=== PATIENT | female | born 1935 | race Two or more races ===

== ENCOUNTER 2019-12-29 14:47 | Inpatient (IN) | payer MEDICARE ==
[~2019-12-29] VITALS: Ht 154.9 cm; Wt 80.7 kg
[2019-12-29 14:50] VITALS: BP 108/69
--- NOTE | 2019-12-29 14:50 | NUR ---
ED Nurse Note: Patient brought in from [facility] d/t shortness of breath x 2 days. Patient is currently on 3 L NC, O2 sat 98 %, no s/s of acute distress. Patient AxO x 4, on the rn cardiac rehab, blood sent to lab. 22 g IV started in right hand.
--- NOTE | 2019-12-29 14:59 | Emergency Room Report ---
History of Present Illness General Chief Complaint: Upper Respiratory Illness Source: Patient, EMS Present Illness HPI Disclaimer: Please note that this report is being documented using DRAGON technology. This can lead to erroneous entry secondary to incorrect interpretation by the dictating instrument. HPI: 84-year-old primarily Cape Verdean speaking female presents from a nursing facility for evaluation of cough and shortness of breath. History of dementia and atrial fibrillation on Eliquis. Per EMS symptoms have been ongoing for 2 days. Saturating 92% on room air improving with oxygen. She does not normally wear oxygen has no known diagnosis of CHF, COPD. No fevers reported. 5 tachypneic and wheezing. PMH: Dementia, atrial fibrillation PSH: Left knee repair Allergies: None reported Social Hx: Unknown Allergies: Coded Allergies: No Known Allergies (Unverified , 12/29/19) Nursing Documentation-PMH Hx Cardiac Problems: Yes - afib Hx Diabetes: Yes Review of Systems All Other Systems: negative except mentioned in HPI Physical Exam Vital Signs Date Time Temp Pulse Resp B/P (MAP) Pulse Ox O2 Delivery O2 Flow Rate FiO2 12/29/19 14:41 97.5 62 16 108/69 (82) 92 Nasal Cannula 4.0 General: Awake and alert, no acute distress HEENT: NC/AT. EOMI. Cardiovascular: RRR. S1 and S2 normal. No murmur appreciated Resp: Normal work of breathing. No wheezing appreciated but there are coarse crackles at the right lung base. Patient is somewhat uncomfortable saturating 92% on RA but 100 on RA Abdomen: Abdomen is soft, nondistended. Nontender Skin: Intact. No abrasions, laceration or rash over the exposed skin MSK: Normal tone and bulk. Moving all extremities. No obvious deformity. Neuro: Awake and alert. Mentating appropriately. Medical Decision Making Diagnostic Impression: Primary Impression: Upper respiratory infection ER Course This an 84-year-old female presenting for evaluation of 2 days URI symptoms and worsening respiratory status at her nursing facility today. Saturating 94% on RA with crackles at the right lung base concerning for pneumonia or upper respiratory infection. She is DNR/DNI. Along with selective care including antibiotics. We will start a broad metabolic infectious work-up including chest x-ray but I suspect the patient will require admission. Laboratory Tests Test 12/29/19 15:20 12/29/19 15:59 White Blood Count 4.5 K/UL (4.8-10.8) L Red Blood Count 3.81 M/UL (4.20-5.40) L Hemoglobin 10.2 G/DL (12.0-16.0) L Hematocrit 31.7 % (37.0-47.0) L Mean Corpuscular Volume 83 FL (80-99) Mean Corpuscular Hemoglobin 26.8 PG (27.0-31.0) L Mean Corpuscular Hemoglobin Concent 32.2 G/DL (32.0-36.0) Red Cell Distribution Width 14.6 % (11.6-14.8) Platelet Count 250 K/UL (150-450) Mean Platelet Volume 5.9 FL (6.5-10.1) L Neutrophils (%) (Auto) 69.4 % (45.0-75.0) Lymphocytes (%) (Auto) 17.6 % (20.0-45.0) L Monocytes (%) (Auto) 9.2 % (1.0-10.0) Eosinophils (%) (Auto) 2.3 % (0.0-3.0) Basophils (%) (Auto) 1.5 % (0.0-2.0) Sodium Level 128 MMOL/L (136-145) L Potassium Level 5.5 MMOL/L (3.5-5.1) H Chloride Level 93 MMOL/L (98-107) L Carbon Dioxide Level 27 MMOL/L (21-32) Anion Gap 8 mmol/L (5-15) Blood Urea Nitrogen 27 mg/dL (7-18) H Creatinine 1.3 MG/DL (0.55-1.30) Estimate Glomerular Filtration Rate 39.0 mL/min (>60) Glucose Level 83 MG/DL (74-106) Lactic Acid Level 1.60 mmol/L (0.4-2.0) Calcium Level 9.0 MG/DL (8.5-10.1) Total Bilirubin 0.2 MG/DL (0.2-1.0) Aspartate Amino Transferase (AST) 24 U/L (15-37) Alanine Aminotransferase (ALT) 14 U/L (12-78) Alkaline Phosphatase 96 U/L (46-116) Troponin I 0.008 ng/mL (0.000-0.056) Pro-B-Type Natriuretic Peptide 1341 pg/mL (0-125) H Total Protein 6.2 G/DL (6.4-8.2) L Albumin 3.1 G/DL (3.4-5.0) L Globulin 3.1 g/dL Albumin/Globulin Ratio 1.0 (1.0-2.7) Arterial Blood pH 7.412 (7.350-7.450) Arterial Blood Partial Pressure CO2 39.6 mmHg (35.0-45.0) Arterial Blood Partial Pressure O2 121.1 mmHg (75.0-100.0) H Arterial Blood HCO3 24.7 mmol/L (22.0-26.0) Arterial Blood Oxygen Saturation 98.1 % (95-100) Arterial Blood Base Excess 0.1 (-2-2) Kris Test Positive Microbiology Date/Time Source Procedure Growth Status 12/29/19 15:20 Nasal Nares - Final Complete 12/29/19 15:20 Nasal Nares - Final Complete EKG Diagnostic Results EKG Time: 15:02 Rate: normal Other Impression Atrial fibrillation with an left axis deviation and normal ventricular rates. Rhythm Strip Diag. Results Rhythm Strip Time: 15:02 EP Interpretation: yes Rate: 70s Rhythm: other - Irregularly irregular rhythm Chest X-Ray Diagnostic Results Chest X-Ray Diagnostic Results : Chest X-Ray Ordered: Yes # of Views/Limited/Complete: 1 View Indication: Shortness of Breath Interpretation: no effusion, no pneumothorax, other - Streaky atelectasis of the bottom right and may be early pneumonia Impression: No acute disease Electronically Signed by: Electronically signed by Dr. Alexander Langley Reevaluation Time: 17:00 Last Vital Signs Date Time Temp Pulse Resp B/P (MAP) Pulse Ox O2 Delivery O2 Flow Rate FiO2 12/29/19 14:41 97.5 62 16 108/69 (82) 92 Nasal Cannula 4.0 Reevaluation Impression Blood gas and CBC show no significant white count and mild anemia. Blood gas within normal limits. Chemistry shows elevated potassium 5.5 without EKG changes and slightly low sodium at 128. Creatinine within normal limits. Lactate within normal limits and troponin negative. BN peptide elevated. Patient was given Lasix and antibiotics. Will be admitted for further management. Disposition: ADMITTED INPATIENT Condition: Serious Alexander Langley MD Dec 29, 2019 14:59
[2019-12-29] MEDS ORDERED: Albuterol/Ipratropium 3ml neb HHN SCH (15:00)
[2019-12-29] MEDS ORDERED: POLYETHYLENE GL17 GM ORAL (15:01)
[2019-12-29] MEDS ORDERED: TUMS X-STR300 MG PO (15:01)
[2019-12-29] MEDS ORDERED: TEMAZEPAM15 MG ORAL (15:01)
[2019-12-29] MEDS ORDERED: VITAMIN D34000 UNIT PO (15:01)
[2019-12-29] MEDS ORDERED: ACETAMINOPHEN325 M1 ORAL (15:01)
[2019-12-29] MEDS ORDERED: ELIQUIS2.5 MG PO (15:01)
[2019-12-29] MEDS ORDERED: PROAIR HFA8.5 GM INH (15:01)
[2019-12-29] MEDS ORDERED: BENZONATATE200 MG ORAL (15:01)
[2019-12-29] MEDS ORDERED: ASPIR 8181 MG ORAL (15:01)
[2019-12-29] MEDS ORDERED: BUSPIRONE HCL15 MG ORAL (15:01)
[2019-12-29] MEDS ORDERED: CULTURELLE PO (15:01)
[2019-12-29] MEDS ORDERED: ALDACTONE25 MG ORAL (15:01)
[2019-12-29] MEDS ORDERED: CALCIUM + D SO1 EACH PO (15:01)
[2019-12-29] MEDS ORDERED: Azithromycin 500 MG in NS 275 ML IV ONE (15:45)
[2019-12-29] MEDS ORDERED: cefTRIAXone 1 GM in NS 55 ML IVPB ONE (15:45)
--- NOTE | 2019-12-29 15:51 | Diagnostic Imaging Report ---
Indication: Shortness of breath Technique: One view of the chest Comparison: none Findings: Heart is enlarged. There is mild interstitial prominence. A calcified granuloma is seen in the left midlung. No definite focal airspace consolidation. No definite effusions Impression: Cardiomegaly Mild interstitial prominence. This may reflect mild interstitial congestion or may be on the basis of senescent change
[2019-12-29 16:54] LABS: BASOPHILS % (AUTO) 1.5 % (0.0-2.0); EOSINOPHILS % (AUTO) 2.3 % (0.0-3.0); HEMATOCRIT 31.7 % (37.0-47.0); HEMOGLOBIN 10.2 G/DL (12.0-16.0); LYMPHOCYTES % (AUTO) 17.6 % (20.0-45.0); MEAN CORPUSCULAR VOLUME 83 FL (80-99); MONOCYTES % (AUTO) 9.2 % (1.0-10.0); NEUTROPHILS % (AUTO) 69.4 % (45.0-75.0); PLATELET COUNT 250 K/UL (150-450); RED BLOOD COUNT 3.81 M/UL (4.20-5.40); RED CELL DISTRIBUTION WIDTH 14.6 % (11.6-14.8); WHITE BLOOD COUNT 4.5 K/UL (4.8-10.8)
[2019-12-29 17:02] LABS: ANION GAP 8 mmol/L (5-15); BLOOD UREA NITROGEN 27 mg/dL (7-18); CARBON DIOXIDE 27 MMOL/L (21-32); CHLORIDE 93 MMOL/L (98-107); CREATININE 1.3 MG/DL (0.55-1.30); POTASSIUM 5.5 MMOL/L (3.5-5.1); SODIUM 128 MMOL/L (136-145)
[2019-12-29 17:03] VITALS: BP 106/67
[2019-12-29 17:16] LABS: ALANINE AMINOTRANSFERASE 14 U/L (12-78); ALBUMIN 3.1 G/DL (3.4-5.0); ALKALINE PHOSPHATASE 96 U/L (46-116); ASPARTATE AMINO TRANSFERASE 24 U/L (15-37); BILIRUBIN,TOTAL 0.2 MG/DL (0.2-1.0)
--- NOTE | 2019-12-29 19:10 | NUR ---
HAND-OFF: Report given to Melody CASTAÑEDA.
[2019-12-29 20:00] VITALS: BP 108/75
--- NOTE | 2019-12-29 20:00 | NUR ---
TRANSFER TO FLOOR: Patient transferred to as ordered, per Dr Hampton. Report given to GARRY Alberto . Belongings and medications given to . Family and or S/O informed of transfer.
--- NOTE | 2019-12-29 20:03 | NUR ---
ED Nurse Note: Pt palced on bed santamaria x3, clear pale yellow urine. Pt is increasingly restless.
[2019-12-29 20:15] VITALS: BP 101/66
--- NOTE | 2019-12-29 20:15 | NUR ---
NURSE NOTES: Received report from GARRY Oliver. Patient was transferred from ED to Telemetry via gurney accompanied by 2 staff members, without any incident. Patient was transferred to hospital bed via draw sheet method. A/Ox4. Primarily Taiwanese speaking. Placed on tele box, Afib on the monitor, 112 bpm. Vital signs taken T=97.3, HR=91, RR=18, YN=248/66, O2 sat =100%. Checked IV site and flushed. No erythema, bleeding or infiltration noted. Belongings list checked with transferring RN. Body assessment done without any skin issues. Bed at lowest position, brakes on, siderailsx3. Call light within reach. Will continue to monitor.
--- NOTE | 2019-12-29 21:30 | NUR ---
NURSE NOTES: Paged Dr. Neal for admitting orders. Awaiting for callback.
[2019-12-29] MEDS ORDERED: Milk of Magnesia 30ml Ud ORAL PRN (22:15)
[2019-12-29] MEDS ORDERED: Guaifenesin/DM 10ml syrup ORAL PRN (22:15)
[2019-12-29] MEDS ORDERED: Miralax 17gm pkt ORAL PRN (22:15)
[2019-12-29] MEDS: Eliquis 2.5mg tablet ORAL SCH ×2 (22:50→22:55)
--- NOTE | 2019-12-29 23:00 | NUR ---
NURSE NOTES: Patient refused IV fluids and medication. Explained risk and benefit x3. Still patient refused to received IV fluid and medication. Charge nurse made aware.
--- NOTE | 2019-12-29 23:15 | History and Physical Report ---
DATE OF ADMISSION: 12/29/2019 REASON FOR ADMISSION: Shortness of breath, hypoxia, and abnormal electrolytes. HISTORY OF PRESENT ILLNESS: This is an 84-year-old female. She resides in an assisted living facility. She has advance directives for DNR/DNI. She has had several days of increasing cough, congestion, and shortness of breath. She was noted to be slightly hypoxic on presentation in the emergency room and was also tachypneic and with episode of hypotension reported. She was given fluids followed by diuretic for an abnormal potassium level and then started on IV antimicrobials. I have been asked to admit her to the hospital for further care. PAST MEDICAL HISTORY: Cerebrovascular disease, dementia, paroxysmal atrial fibrillation, hypertension, osteoarthritis, status post left knee surgery, type 2 diabetes mellitus, vitamin D deficiency. ALLERGIES: NONE. MEDICATIONS: Prior to admission, reviewed and reconciled. FAMILY HISTORY: Noncontributory. SOCIAL HISTORY: Negative for smoking, alcohol, or substance abuse. She is Upper Sorbian speaking. REVIEW OF SYSTEMS: A 10-point review of systems could not be performed due to the patient's underlying dementia and language barrier. However, review of records is performed with x20 minutes and pertinent data outlined above. PHYSICAL EXAMINATION: VITAL SIGNS: Afebrile, blood pressure 108/69, pulse 62, respirations 16. HEENT: Normocephalic, atraumatic. Conjunctivae pink. Sclerae are anicteric. Oropharynx clear. Mucous membranes moist. NECK: Supple. Jugular venous pressure grossly normal. No accessory muscle use. LUNGS: Coarse breath sounds. Rhonchi and rales at the right base predominantly. CARDIAC: Regular rhythm and rate. Normal S1, S2 with a fourth heart sound. ABDOMEN: Soft, nontender. EXTREMITIES: No clubbing, cyanosis. No edema. NEUROLOGIC: Grossly nonfocal. Moderate cognitive impairment. SKIN: Intact. LABORATORY AND DIAGNOSTIC DATA: White count 4.5, hemoglobin 10.2. BUN 27, creatinine 1.3, bicarb 27. Sodium 128, potassium 5.5, chloride 93, troponin 0.008, pro-natriuretic peptide 1341. ABG 7.4, 40, and 120. Influenza swab was negative. EKG, atrial fibrillation, nonspecific ST changes with ventricular rate 70. Chest x-ray, no acute process other than right basilar atelectasis. IMPRESSION: 1. Acute respiratory insufficiency with hypoxia. 2. Community-acquired bronchopneumonia. 3. Hyponatremia and hyperkalemia, likely due to Aldactone use. 4. Mild hypovolemia and dehydration. 5. Acute on chronic diastolic congestive heart failure. 6. Atrial fibrillation, rate controlled. 7. Coagulopathy due to chronic therapy with apixaban. 8. Cerebrovascular disease with dementia. PLAN: 1. Panculture. 2. Inhaled bronchodilators. 3. Nasal oxygen. 4. Empiric antimicrobials, antitussives, antipyretics as needed. 5. Hold Aldactone. 6. Saline hydration. 7. Monitor volume status and cardiorenal parameters. 8. Trend natriuretic peptide assay. 9. Check thyroid panel. 10. DNR/DNI based on advance directives and . 11. Cardiac monitoring. Jarrett Neal M.D. DR: LOU JOB#: [id number] CC:
[2019-12-29] MEDS: Albuterol/Ipratropium 3ml neb HHN SCH (23:41)
--- NOTE | 2019-12-29 23:52 | NUR ---
HAND-OFF: Report given to GARRY Heller. Plan of care endorsed.
[2019-12-30] VITALS: BP 99/50
--- NOTE | 2019-12-30 | NUR ---
NURSE NOTES: Report received from GARRY Alberto. Observed pt lying in the bed, awake, denies any pain at this time. A fib with HR of 100 noted. On 3L NC, with no sob noted. IV on R H 22G, SL, asymptomatic. No distress noted at this time. Bed in the lowest position. Call light within reach. Will continue to monitor.
[2019-12-30] MEDS: Albuterol/Ipratropium 3ml neb HHN SCH ×6 (03:41→23:00)
[2019-12-30 04:00] VITALS: BP 108/52
--- NOTE | 2019-12-30 07:26 | NUR ---
NURSE NOTES: Received report from GARRY Heller. Pt in bed, awake, talkative, Vietnamese and Kosovan speaking, very heavy accents, pt shouting that she wants to go home today "Nothing is wrong with me, I want to go home, here I don't eat, I don't drink, I will call my son to pick me up." Explained to the pt that she was recently admitted and Dr. Neal will see her and order a DC. Pt is in no respiratory distress, no c/o of pain, bed in lowest position and locked, call light within reach.
--- NOTE | 2019-12-30 07:29 | NUR ---
HAND-OFF: Report given to GARRY Paez.
[2019-12-30 08:00] VITALS: BP 115/67
--- NOTE | 2019-12-30 08:25 | NUR ---
NURSE NOTES: Pt refused vital signs, RN explained to pt need for vitals, pt agreed
--- NOTE | 2019-12-30 08:45 | NUR ---
NURSE NOTES: Pt refused her lab draw, RN spoke with pt, but pt stated "no needles, I don't need anything, I go home."
[2019-12-30] MEDS: Docusate 100mg cap ORAL SCH ×2 (09:00→17:51)
[2019-12-30] MEDS: Aspirin Baby 81mg ORAL SCH (09:00)
--- NOTE | 2019-12-30 09:30 | NUR ---
NURSE NOTES: Assisted pt to bathroom with a front we Addendum: 12/30/19 at 1024 by SHAAN DELUNA RN NURSE NOTES: Assisted pt to bathroom with a front wheel walker, pt is very anxious, upset and cry because she needed Addendum: 12/30/19 at 1029 by SHAAN DELUNA RN NURSE NOTES: Assisted pt to the bathroom with a front wheel walker, pt is upset, anxious, crying because she need assistance with cleaning herself. Assisted pt back to bed safely. Discussed with pt that her HR is 140-150's and she needs to take her medications. Pt agreed to take Buspirone 15mg PO to help reduce anxiety. RN also discussed the importance of pt having her IVF NS infusion. Pt agreed. RN connected IVF. Dr. Neal at bedside discussed plan of care with pt and importance of having lab draws, taking medications, and complying with care, pt agreed and agreed to eat lunch as she refused to eat breakfast. RN notified Dr. Neal in person that pt's HR has been 140-150's and she had been refusing treatments
[2019-12-30] MEDS: BusPIRone 5mg Tab ORAL SCH ×2 (09:50→18:00)
[2019-12-30] MEDS: Eliquis 2.5mg tablet ORAL SCH ×3 (11:39→22:20)
[2019-12-30 12:00] VITALS: BP 113/72
[2019-12-30 13:47] LABS: BASOPHILS % (AUTO) 0.6 % (0.0-2.0); EOSINOPHILS % (AUTO) 0.2 % (0.0-3.0); HEMATOCRIT 33.5 % (37.0-47.0); HEMOGLOBIN 11.1 G/DL (12.0-16.0); MEAN CORPUSCULAR VOLUME 83 FL (80-99); MONOCYTES % (AUTO) 12.3 % (1.0-10.0); NEUTROPHILS % (AUTO) 69.8 % (45.0-75.0); PLATELET COUNT 251 K/UL (150-450); RED BLOOD COUNT 4.04 M/UL (4.20-5.40); RED CELL DISTRIBUTION WIDTH 13.4 % (11.6-14.8)
--- NOTE | 2019-12-30 14:10 | NUR ---
NURSE NOTES: Called pt's son, Roger to discuss pt's anxiety, refusing to eat, a overall refusal of care. Received a call from son, Anibal, provided update on pt's status and Anibal spoke with his mother
[2019-12-30 14:25] LABS: ALANINE AMINOTRANSFERASE 12 U/L (12-78); ALBUMIN 3.2 G/DL (3.4-5.0); ALBUMIN/GLOBULIN RATIO 0.9 (1.0-2.7); ALKALINE PHOSPHATASE 97 U/L (46-116); ANION GAP 10 mmol/L (5-15); ASPARTATE AMINO TRANSFERASE 18 U/L (15-37); BILIRUBIN,TOTAL 0.3 MG/DL (0.2-1.0); BLOOD UREA NITROGEN 22 mg/dL (7-18); CALCIUM 9.3 MG/DL (8.5-10.1); CARBON DIOXIDE 26 MMOL/L (21-32); CHLORIDE 96 MMOL/L (98-107); CREATININE 1.3 MG/DL (0.55-1.30); POTASSIUM 4.2 MMOL/L (3.5-5.1); SODIUM 132 MMOL/L (136-145)
[2019-12-30 14:29] LABS: FERRITIN 44 NG/ML (8-388)
[2019-12-30 14:40] LABS: % IRON SATURATION 14 % (15-50); IRON 50 ug/dL (50-175); TOTAL IRON BINDING CAPACITY 353 ug/dL (250-450)
[2019-12-30 14:55] LABS: CHOLESTEROL 151 MG/DL (< 200); HDL CHOLESTEROL 49 MG/DL (40-60); TRIGLYCERIDES 91 MG/DL (30-150)
--- NOTE | 2019-12-30 14:59 | Consultation ---
Consult Note Consult Note asked to eval for huigh K and low Na Bruneian speaking female ER: 84-year-old primarily Bruneian speaking female presents from a nursing facility for evaluation of cough and shortness of breath. History of dementia and atrial fibrillation on Eliquis. Per EMS symptoms have been ongoing for 2 days. Saturating 92% on room air improving with oxygen. She does not normally wear oxygen has no known diagnosis of CHF, COPD. No fevers reported. 5 tachypneic and wheezing. PMH: Dementia, atrial fibrillation PSH: Left knee repair Allergies: None Hx Cardiac Problems: Yes - afib Hx Diabetes: Yes examined- uncoaporative data reviewed . Assessment/Plan Admitted with respiratory failure and Hypoxia Pneumonia Low Na and High K ? due to aldactone Azotemia / Dehydration CHF , acute on chronic Anemia- Low Irron Obesity Dementia DM Plan: UA Mag supplement IV Iron Aim to correct lytes monitor renal parameters keep BP and BS and HR in check Pulm and cardiac tune up Nakul Matta MD Dec 30, 2019 14:59
--- NOTE | 2019-12-30 15:15 | Consultation ---
DATE OF CONSULTATION: 12/30/2019 INFECTIOUS DISEASES CONSULTATION CONSULTING PHYSICIAN: Nieves Burgess M.D. REFERRING PHYSICIAN: Jarrett Neal M.D. REASON FOR CONSULTATION: Pneumonia. HISTORY OF PRESENTING ILLNESS: This is an 84-year-old lady with history of dementia, CVA, atrial fibrillation, hypertension, diabetes who comes in with increasing cough, congestion, and shortness of breath. She was found to be tachypneic and found to have pneumonia and Infectious Diseases consultation has been obtained for antibiotics. PAST MEDICAL HISTORY: 1. History of CVA. 2. Dementia. 3. Atrial fibrillation. 4. Hypertension. 5. Osteoarthritis. 6. Status post left knee surgery. 7. Diabetes. 8. Vitamin D deficiency. SOCIAL HISTORY: No history of smoking, alcohol, or drug use. FAMILY HISTORY: Noncontributory. REVIEW OF SYSTEMS: Unable to obtain currently. MEDICATIONS: As an inpatient, she is on ceftriaxone, azithromycin, aspirin, buspirone, docusate, Eliquis, albuterol/ipratropium, Restoril, milk of magnesia, MiraLAX, Tylenol, Robitussin. ALLERGIES: No known drug allergies. PHYSICAL EXAMINATION: VITAL SIGNS: Temperature 97.8, T-max of 98.1, pulse of 127, respiratory rate 20, blood pressure 115/67, O2 saturation of 97%. HEENT: Pupils equally reactive to light and accommodation. Mouth appears clean without thrush. NECK: Supple. No adenopathy. No JVD. CARDIOVASCULAR: Regular rate and rhythm. No murmurs. LUNGS: Clear to auscultation bilaterally. No crackles. No wheezes. ABDOMEN: Soft, nontender. No organomegaly. EXTREMITIES: No cyanosis. No clubbing. Edema noted bilaterally. LABORATORY AND DIAGNOSTIC DATA: White count 4.5, hemoglobin 10.2, hematocrit 31.7, MCV 83, platelet count of 250. Sodium 128, potassium 5.5, chloride 93, bicarb 27, BUN 27, creatinine 1.3, glucose 83, calcium 9. Total bilirubin 0.2, AST 24, ALT 14, alkaline phosphatase 96. Troponin 0.008. Beta natriuretic peptide 1341. Total protein 6.2, albumin 3.1. Chest x-ray showing mild interstitial prominence, may reflect mild congestion. ASSESSMENT: This is an 84-year-old lady with history of diabetes, hypertension, atrial fibrillation, CVA who comes in with cough, congestion, and shortness of breath and is found to have possible. 1. Community-acquired pneumonia versus atypical pneumonia. 2. Diabetes. 3. Hypertension. PLAN: 1. Continue ceftriaxone and azithromycin. 2. We will order sputum for Gram stain and culture. 3. We will order for serum Legionella antibody and mycoplasma serologies. 4. We will follow up cultures and adjust antibiotics accordingly. I would like to thank, Dr. Neal for this consultation. Nieves Burgess M.D. DR: SAMI JOB#: [id number] CC: Jarrett Neal M.D.
[2019-12-30 15:53] LABS: APPEARANCE,URINE CLEAR; BILIRUBIN, URINE NEGATIVE (NEGATIVE); COLOR,URINE PALE YELLOW; GLUCOSE, URINE (UA) NEGATIVE (NEGATIVE); KETONES,URINE 1+ (NEGATIVE); LEUKOCYTE ESTERASE ,URINE NEGATIVE (NEGATIVE); NITRITE,URINE NEGATIVE (NEGATIVE); PH,URINE 6.5 (4.5-8.0); PROTEIN,URINE NEGATIVE (NEGATIVE); UROBILINOGEN,URINE NORMAL MG/DL (0.0-1.0)
[2019-12-30 16:00] VITALS: BP 139/86
[2019-12-30] MEDS: Azithromycin 500 MG in D5W 275 ML IV SCH (16:05)
[2019-12-30] MEDS ORDERED: cefTRIAXone 1 GM in D5W 55 ML IVPB SCH (17:00)
--- NOTE | 2019-12-30 17:00 | NUR ---
NURSE NOTES: Pt removed her IV in left hand 22g while receiving magnesium and azithromycin. Pt bleeding was stopped, pt refused to change clothes even though there was blood on them. IV infusions place on right hand 22g IV to finish infusions. \ Pt's son, Roger stated that pt often gets more confused when she has an infection and that she usually cries and refuses to take medications, she is also very suspicious of hospital staff.
[2019-12-30] MEDS ORDERED: Iron Sucrose 200 MG in NS 110 ML IV SCH (18:00)
--- NOTE | 2019-12-30 18:01 | NUR ---
NURSE NOTES: Pt refusing 1800 medication. She has had a BM today and does not want colace. She states she does not want Buspirone because she does not have anxiety. RN educated on medication purpose, risk and benefits, pt still refused stating "I don't take because I dont have anxiety."
[2019-12-30] MEDS: cefTRIAXone 1 GM in D5W 55 ML IVPB SCH (18:27)
--- NOTE | 2019-12-30 19:07 | NUR ---
HAND-OFF: Report given to GARRY Alberto.
--- NOTE | 2019-12-30 19:10 | NUR ---
NURSE NOTES: Received report from GARRY Paez. Patient is awake, sitting on a chair watching tv. A/Ox4. Primarily Cymraes speaking. Denies pain at this time. No signs of acute distress noted. Checked IV site and flushed. No erythema, bleeding or infiltration noted. Bed at lowest position, brakes on, siderailsx3. Call light within reach. Will continue to monitor.
--- NOTE | 2019-12-30 19:22 | NUR ---
CASE MANAGEMENT: REVIEW 84 YEAR OLD FEMALE BIBA FROM [facility] CC: SOB X2 DAYS SI: BRONCHOPNEUMONIA . ACUTE RESPIRATORY INSUFFICIENCY w/HYPOXIA T 97.5 HR 62 RR 16 BP 101/66 SAT 92% NC/4L WBC 4.5 NA 128 K+ 5.5 BNP 1341 CXR -- CARDIOMEGALY . MILD INTERSTITIAL PROMINENCE IS: AZITHROMYCIN IV X1 ROCEPHIN IV X1 LASIX 40MG IV X1 JACQUELINE NEB HHN X1 PATIENT ADMITTED TO TELEMETRY UNIT 12/29/2019 DCP: PATIENT IS FROM [facility]
[2019-12-30 20:00] VITALS: BP 129/71
--- NOTE | 2019-12-30 22:00 | NUR ---
NURSE NOTES: Patient refused 2100 and 2300 medications. Patient stated "I don't need it. I'm ok." Explained risk and benefitsx3. Patient adamantly doesn't want to take her medications. Comfort care provided. Will continue to monitor.
[2019-12-31] VITALS: BP 139/93
[2019-12-31] MEDS ORDERED: Metoprolol Tartrate 50mg tab ORAL SCH
--- NOTE | 2019-12-31 00:30 | NUR ---
NURSE NOTES: Patient still refused to take 0000 medication. Explained the risk and benefitx3. Patient stated, "My heart is good. I believe God will take care of my heart." Charge nurse made aware. Notified Dr. Neal of patient's refusal of medication.
--- NOTE | 2019-12-31 01:15 | Progress Note ---
DATE: 12/30/2019 INTERNAL MEDICINE AND CARDIOLOGY PROGRESS NOTE SUBJECTIVE: The patient is anxious to leave the hospital. She is agitated and confused. She is not liking the food in the hospital. She does not like being bed bound. She still has cough and congestion. She appeared short of breath. Monitored rhythm reviewed by me. Sinus and sinus tachycardia noted. OBJECTIVE: VITAL SIGNS: Blood pressure 139/86, pulse 132, respirations 20, afebrile, and oxygen saturation on room air 90 to 93%. CARDIAC: Regularly irregular rhythm. LABORATORY DATA: White count 4 and hemoglobin 11. Urinalysis with 10 to 15 red cells. Magnesium 1.6. Iron saturation 14. B12 and folate are normal. BUN 22, creatinine 1.3, glucose 120, and potassium 4.2. IMPRESSION: 1. Acute bronchitis and bronchopneumonia. 2. Hypoxia. 3. Hyponatremia and hyperkalemia, improved. 4. Hypovolemia and dehydration, improved. 5. Cerebrovascular disease with dementia and agitation. 6. Paroxysmal atrial fibrillation with rapid ventricular response. 7. Hypertensive heart disease. 8. Chronic diastolic congestive heart failure. 9. Iron deficiency with anemia. PLAN: 1. Cautious hydration. 2. Hold Aldactone. 3. Antimicrobials. 4. Bronchodilators. 5. Respiratory hygiene. 6. Titrate antihypertensives. 7. Insulin coverage by sliding scale. 8. Iron replacement. 9. Stool occult blood testing. 10. Cardioembolic prophylaxis with apixaban. 11. Add beta-aaron for rate control. Jarrett Neal M.D. DR: FELISA JOB#: [id number] CC:
--- NOTE | 2019-12-31 02:30 | Consultation ---
DATE OF CONSULTATION: 12/30/2019 PULMONARY CONSULTATION HISTORY OF PRESENT ILLNESS: This is an 84-year-old female, who lives in assisted care facility. She is known to be DNR/DNI. She came to the hospital with cough, congestion, and shortness of breath. She is also mildly hypoxic. She was seen and admitted to the hospital. She was thought to have pneumonia, admitted, and started on IV antibiotics. Review of x-ray shows no definite evidence of pneumonia; however, there was bibasilar atelectasis. She has no leukocytosis. Overnight, I have reviewed her vital signs and noted that she has been afebrile, saturating well on room air. PAST MEDICAL HISTORY: Notable for CVA, dementia, atrial fibrillation, hypertension, osteoarthrosis, previous knee surgery, and diabetes mellitus. ALLERGIES: None. HOME MEDICATIONS: Reviewed and reconciled in chart. SOCIAL HISTORY: Denies alcohol or tobacco use. PHYSICAL EXAMINATION: GENERAL: Reveals an elderly female. VITAL SIGNS: Show a blood pressure of 130/80, heart rate 104, and respirations 20. She is afebrile. HEENT: Unremarkable. LUNGS: Clear breath sounds bilaterally with normal heart sounds. ABDOMEN: Soft. EXTREMITIES: There is no edema. LABORATORY DATA: Blood testing as discussed above. She has normal CBC and BMP with hemoglobin of 11 and BUN of 22. IMPRESSION: 1. Acute bronchitis versus pneumonia. 2. CVA. 3. Dementia. 4. Paroxysmal atrial fibrillation. 5. Hypertension. DISCUSSION: 1. Admit to the hospital. 2. Agree with broad-spectrum antibiotics. 3. We will follow as food writer. 4. We will order oxygen. Oliver Porras M.D. DR: KARRIE JOB#: [id number] CC:
[2019-12-31] MEDS: Albuterol/Ipratropium 3ml neb HHN SCH ×5 (03:00→22:34)
--- NOTE | 2019-12-31 03:58 | NUR ---
NURSE NOTES: Resting throughout the night. No significant change of condition noted. Will continue to monitor.
[2019-12-31 04:00] VITALS: BP 125/84
--- NOTE | 2019-12-31 07:30 | Pulmonology Progress Note ---
Assessment/Plan Assessment/Plan IMPRESSION: 1. Acute bronchitis versus pneumonia. 2. CVA. 3. Dementia. 4. Paroxysmal atrial fibrillation. 5. Hypertension. DISCUSSION: 1. Continue present care 2. Agree with broad-spectrum antibiotics. 3. I will follow as model and dye person. 4. Use oxygen prn. Oliver Porras M.D. Subjective Interval Events: Feeling better; saturating well on RA Constitutional: Reports: no symptoms HEENT: Repors: no symptoms Respiratory: Reports: no symptoms Cardiovascular: Reports: no symptoms Gastrointestinal/Abdominal: Reports: no symptoms Allergies: Coded Allergies: No Known Allergies (Unverified , 12/29/19) Objective Last 24 Hour Vital Signs Date Time Temp Pulse Resp B/P (MAP) Pulse Ox O2 Delivery O2 Flow Rate FiO2 12/31/19 04:00 97.5 99 18 125/84 (98) 97 12/31/19 04:00 106 12/31/19 00:00 108 12/31/19 00:00 98.8 123 20 139/93 (108) 97 12/30/19 21:00 Room Air 12/30/19 20:00 97.7 94 18 129/71 (90) 90 12/30/19 20:00 101 12/30/19 19:12 93 Room Air 21 12/30/19 16:10 114 12/30/19 16:00 97.7 132 20 139/86 (103) 95 12/30/19 12:00 97.7 113 20 113/72 (86) 94 12/30/19 11:51 93 12/30/19 08:21 Room Air 12/30/19 08:00 97.8 127 20 115/67 (83) 97 12/30/19 07:48 109 Intake and Output 12/30/19 12/31/19 19:00 07:00 Intake Total 120 ml Balance 120 ml Intake Oral 120 ml # Voids 5 # Bowel Movements 3 General Appearance: no acute distress HEENT: normocephalic Respiratory/Chest: chest wall non-tender, lungs clear Cardiovascular: normal peripheral pulses Abdomen: normal bowel sounds Microbiology Date/Time Source Procedure Growth Status 12/29/19 15:20 Nasal Nares - Final Complete 12/29/19 15:20 Nasal Nares - Final Complete Laboratory Tests 12/30/19 13:30: White Blood Count 4.0L, Red Blood Count 4.04L, Hemoglobin 11.1L, Hematocrit 33.5L, Mean Corpuscular Volume 83, Mean Corpuscular Hemoglobin 27.6, Mean Corpuscular Hemoglobin Concent 33.2, Red Cell Distribution Width 13.4, Platelet Count 251, Mean Platelet Volume 5.4L, Neutrophils (%) (Auto) 69.8, Lymphocytes ( %) (Auto) 17.0L, Monocytes (%) (Auto) 12.3H, Eosinophils (%) (Auto) 0.2, Basophils (%) (Auto) 0.6, Sodium Level 132L, Potassium Level 4.2, Chloride Level 96L, Carbon Dioxide Level 26, Anion Gap 10, Blood Urea Nitrogen 22H, Creatinine 1.3, Estimat Glomerular Filtration Rate 39.0, Glucose Level 120H, Osmolality 281L, Uric Acid 8.3H, Calcium Level 9.3, Magnesium Level 1.6L, Iron Level 50, Total Iron Binding Capacity 353, Percent Iron Saturation 14L, Unsaturated Iron Binding 303, Ferritin 44, Total Bilirubin 0.3, Aspartate Amino Transf (AST/SGOT) 18, Alanine Aminotransferase (ALT/SGPT) 12, Alkaline Phosphatase 97, Total Protein 6.9, Albumin 3.2L, Globulin 3.7, Albumin/Globulin Ratio 0.9L, Triglycerides Level 91, Cholesterol Level 151, LDL Cholesterol 79, HDL Cholesterol 49, Cholesterol/HDL Ratio 3.1L, Vitamin B12 Level 605, Folate 16.7, Thyroid Stimulating Hormone (TSH) 1.641, Legionella pneumophila Group 1 Ab [Pending], Legionella pneumophilia IgM Group 1 [Pending], Mycoplasma pneumoniae IgG Antibody [Pending], Mycoplasma pneumoniae IgM Ab Titer [Pending] 12/30/19 15:40: Urine Color Pale yellow, Urine Appearance Clear, Urine pH 6.5, Urine Specific [place] 1.010, Urine Protein Negative, Urine Glucose (UA) Negative, Urine Ketones 1+H, Urine Blood 1+H, Urine Nitrite Negative, Urine Bilirubin Negative, Urine Urobilinogen Normal, Urine Leukocyte Esterase Negative, Urine RBC 10-15H, Urine WBC 0-2, Urine Squamous Epithelial Cells ModerateH, Urine Bacteria Few, Urine Osmolality 351L, Urine Random Sodium 47 Current Medications Medications (Trade) Dose Ordered Sig/Meera Route PRN Reason Start Time Stop Time Status Last Admin Dose Admin Acetaminophen (Tylenol) 650 mg Q4H PRN ORAL Mild Pain/Temp > 100.5 12/29/19 22:15 01/28/20 22:14 Albuterol/ Ipratropium (Albuterol/ Ipratropium) 3 ml Q4HRT HHN 12/29/19 23:00 01/03/20 22:59 Apixaban (Eliquis) 2.5 mg Q12H ORAL 12/29/19 23:00 01/28/20 22:59 12/30/19 11:39 Aspirin (ASA) 81 mg DAILY ORAL 12/30/19 09:00 01/29/20 08:59 Azithromycin 500 mg/Dextrose 275 ml @ 275 mls/hr Q24HRS IV 12/30/19 16:00 01/05/20 16:59 12/30/19 16:05 Buspirone HCl (Buspar) 15 mg BID ORAL 12/30/19 09:00 01/29/20 08:59 12/30/19 09:50 Ceftriaxone Sodium 1 gm/ Dextrose 55 ml @ 110 mls/hr Q24H IVPB 12/30/19 19:00 01/06/20 18:59 12/30/19 18:27 Docusate Sodium (Colace) 100 mg TWICE A DAY ORAL 12/30/19 09:00 01/29/20 08:59 Guaifenesin/ Dextromethorphan (Robitussin DM Syrup) 10 ml Q4H PRN ORAL For Cough 12/29/19 22:15 01/28/20 22:14 Magnesium Hydroxide (Mom) 30 ml DAILYPRN PRN ORAL Constipation 1ST CHOICE 12/29/19 22:15 01/28/20 22:14 Metoprolol Tartrate (Lopressor) 25 mg Q12HR ORAL 12/31/19 09:00 01/30/20 08:59 Pantoprazole (Protonix) 40 mg EVERY 12 HOURS ORAL 12/30/19 21:00 01/29/20 20:59 Polyethylene Glycol (Miralax) 17 gm DAILY PRN ORAL Constipation 12/29/19 22:15 01/28/20 22:14 Sodium Chloride 1,000 ml @ 50 mls/hr Q20H IV 12/30/19 15:07 01/29/20 15:06 12/30/19 15:11 Temazepam (Restoril) 15 mg HSPRN PRN ORAL Insomnia 12/29/19 22:30 01/05/20 22:29 Oliver Porras MD Dec 31, 2019 07:30
--- NOTE | 2019-12-31 07:45 | NUR ---
HAND-OFF: Report given to GARRY Rodriguez. Plan of care endorsed
[2019-12-31 08:00] VITALS: BP 132/80
--- NOTE | 2019-12-31 08:05 | NUR ---
NURSE NOTES: recvd pt. Pt is AOX4, Pt is on room air with no sign of sob or resp distress. Pt appears Afib on surveillance system monitor. IV site is c/d/i and locked. Bed in lowest position,call light within reach, will continue with plan of care
[2019-12-31 08:42] LABS: BASOPHILS % (AUTO) 0.4 % (0.0-2.0); EOSINOPHILS % (AUTO) 0.1 % (0.0-3.0); HEMATOCRIT 35.9 % (37.0-47.0); LYMPHOCYTES % (AUTO) 12.7 % (20.0-45.0); MEAN CORPUSCULAR VOLUME 83 FL (80-99); MONOCYTES % (AUTO) 8.9 % (1.0-10.0); NEUTROPHILS % (AUTO) 77.9 % (45.0-75.0); PLATELET COUNT 279 K/UL (150-450); RED BLOOD COUNT 4.32 M/UL (4.20-5.40); RED CELL DISTRIBUTION WIDTH 12.7 % (11.6-14.8); WHITE BLOOD COUNT 6.8 K/UL (4.8-10.8)
[2019-12-31] MEDS: Docusate 100mg cap ORAL SCH ×2 (09:00→18:51)
[2019-12-31 09:07] LABS: ALANINE AMINOTRANSFERASE 10 U/L (12-78); ALBUMIN 3.3 G/DL (3.4-5.0); ALBUMIN/GLOBULIN RATIO 0.8 (1.0-2.7); ALKALINE PHOSPHATASE 103 U/L (46-116); ANION GAP 14 mmol/L (5-15); ASPARTATE AMINO TRANSFERASE 20 U/L (15-37); BILIRUBIN,TOTAL 0.3 MG/DL (0.2-1.0); BLOOD UREA NITROGEN 20 mg/dL (7-18); CALCIUM 9.4 MG/DL (8.5-10.1); CARBON DIOXIDE 24 MMOL/L (21-32); CHLORIDE 97 MMOL/L (98-107); CREATININE 1.1 MG/DL (0.55-1.30); PHOSPHORUS 2.7 MG/DL (2.5-4.9); POTASSIUM 4.1 MMOL/L (3.5-5.1); SODIUM 134 MMOL/L (136-145)
[2019-12-31] MEDS: BusPIRone 5mg Tab ORAL SCH ×2 (09:31→18:53)
[2019-12-31] MEDS: Aspirin Baby 81mg ORAL SCH (09:34)
--- NOTE | 2019-12-31 10:43 | Infectious Diseases Prog Note ---
Assessment/Plan Assessment/Plan antibiotics : ceftriaxone, azithromycin A 1. pneumonia 2. diabetes mellitus 3. hypertension 4. atrial fibrillation 5. CVA 6. dementia P 1. continue ceftriaxone, azithromycin 2. will follow up cultures Subjective ROS Limited/Unobtainable: Yes Allergies: Coded Allergies: No Known Allergies (Unverified , 12/29/19) Objective Vital Signs Last 24 Hour Vital Signs Date Time Temp Pulse Resp B/P (MAP) Pulse Ox O2 Delivery O2 Flow Rate FiO2 12/31/19 09:31 115 132/80 12/31/19 09:00 Room Air 12/31/19 08:00 115 12/31/19 08:00 97.7 128 20 132/80 (97) 92 12/31/19 07:32 94 Room Air 21 12/31/19 04:00 97.5 99 18 125/84 (98) 97 12/31/19 04:00 106 12/31/19 00:00 108 12/31/19 00:00 98.8 123 20 139/93 (108) 97 12/30/19 21:00 Room Air 12/30/19 20:00 97.7 94 18 129/71 (90) 90 12/30/19 20:00 101 12/30/19 19:12 93 Room Air 21 12/30/19 16:10 114 12/30/19 16:00 97.7 132 20 139/86 (103) 95 12/30/19 12:00 97.7 113 20 113/72 (86) 94 12/30/19 11:51 93 Height (Feet): 5 Height (Inches): 1.00 Weight (Pounds): 178 Respiratory/Chest: lungs clear Cardiovascular: normal rate, regular rhythm, no gallop/murmur Abdomen: soft, non tender Extremities: other - + edema Microbiology Date/Time Source Procedure Growth Status 12/29/19 15:20 Nasal Nares - Final Complete 12/29/19 15:20 Nasal Nares - Final Complete Laboratory Tests Test 12/30/19 13:30 12/30/19 15:40 12/31/19 07:45 White Blood Count 4.0 K/UL (4.8-10.8) L 6.8 K/UL (4.8-10.8) # Red Blood Count 4.04 M/UL (4.20-5.40) L 4.32 M/UL (4.20-5.40) Hemoglobin 11.1 G/DL (12.0-16.0) L 12.0 G/DL (12.0-16.0) Hematocrit 33.5 % (37.0-47.0) L 35.9 % (37.0-47.0) L Mean Corpuscular Volume 83 FL (80-99) 83 FL (80-99) Mean Corpuscular Hemoglobin 27.6 PG (27.0-31.0) 27.7 PG (27.0-31.0) Mean Corpuscular Hemoglobin Concent 33.2 G/DL (32.0-36.0) 33.3 G/DL (32.0-36.0) Red Cell Distribution Width 13.4 % (11.6-14.8) 12.7 % (11.6-14.8) Platelet Count 251 K/UL (150-450) 279 K/UL (150-450) Mean Platelet Volume 5.4 FL (6.5-10.1) L 5.5 FL (6.5-10.1) L Neutrophils (%) (Auto) 69.8 % (45.0-75.0) 77.9 % (45.0-75.0) H Lymphocytes (%) (Auto) 17.0 % (20.0-45.0) L 12.7 % (20.0-45.0) L Monocytes (%) (Auto) 12.3 % (1.0-10.0) H 8.9 % (1.0-10.0) Eosinophils (%) (Auto) 0.2 % (0.0-3.0) 0.1 % (0.0-3.0) Basophils (%) (Auto) 0.6 % (0.0-2.0) 0.4 % (0.0-2.0) Sodium Level 132 MMOL/L (136-145) L 134 MMOL/L (136-145) L Potassium Level 4.2 MMOL/L (3.5-5.1) 4.1 MMOL/L (3.5-5.1) Chloride Level 96 MMOL/L (98-107) L 97 MMOL/L (98-107) L Carbon Dioxide Level 26 MMOL/L (21-32) 24 MMOL/L (21-32) Anion Gap 10 mmol/L (5-15) 14 mmol/L (5-15) Blood Urea Nitrogen 22 mg/dL (7-18) H 20 mg/dL (7-18) H Creatinine 1.3 MG/DL (0.55-1.30) 1.1 MG/DL (0.55-1.30) Estimat Glomerular Filtration Rate 39.0 mL/min (>60) 47.2 mL/min (>60) Glucose Level 120 MG/DL (74-106) H 138 MG/DL (74-106) H Osmolality 281 mOsm/kg (297-317) L Uric Acid 8.3 MG/DL (2.6-7.2) H 8.0 MG/DL (2.6-7.2) H Calcium Level 9.3 MG/DL (8.5-10.1) 9.4 MG/DL (8.5-10.1) Magnesium Level 1.6 MG/DL (1.8-2.4) L 2.1 MG/DL (1.8-2.4) Iron Level 50 ug/dL (50-175) Total Iron Binding Capacity 353 ug/dL (250-450) Percent Iron Saturation 14 % (15-50) L Unsaturated Iron Binding 303 ug/dL (112-346) Ferritin 44 NG/ML (8-388) Total Bilirubin 0.3 MG/DL (0.2-1.0) 0.3 MG/DL (0.2-1.0) Aspartate Amino Transf (AST/SGOT) 18 U/L (15-37) 20 U/L (15-37) Alanine Aminotransferase (ALT/SGPT) 12 U/L (12-78) 10 U/L (12-78) L Alkaline Phosphatase 97 U/L (46-116) 103 U/L (46-116) Total Protein 6.9 G/DL (6.4-8.2) 7.2 G/DL (6.4-8.2) Albumin 3.2 G/DL (3.4-5.0) L 3.3 G/DL (3.4-5.0) L Globulin 3.7 g/dL 3.9 g/dL Albumin/Globulin Ratio 0.9 (1.0-2.7) L 0.8 (1.0-2.7) L Triglycerides Level 91 MG/DL (30-150) Cholesterol Level 151 MG/DL (< 200) LDL Cholesterol 79 mg/dL (<100) HDL Cholesterol 49 MG/DL (40-60) Cholesterol/HDL Ratio 3.1 (3.3-4.4) L Vitamin B12 Level 605 PG/ML (193-986) Folate 16.7 NG/ML (8.6-58.9) Thyroid Stimulating Hormone (TSH) 1.641 uiU/mL (0.358-3.740) Legionella pneumophila Group 1 Ab Pending Legionella pneumophilia IgM Group 1 Pending Mycoplasma pneumoniae IgG Antibody Pending Mycoplasma pneumoniae IgM Ab Titer Pending Urine Color Pale yellow Urine Appearance Clear Urine pH 6.5 (4.5-8.0) Urine Specific [place] 1.010 (1.005-1.035) Urine Protein Negative (NEGATIVE) Urine Glucose (UA) Negative (NEGATIVE) Urine Ketones 1+ (NEGATIVE) H Urine Blood 1+ (NEGATIVE) H Urine Nitrite Negative (NEGATIVE) Urine Bilirubin Negative (NEGATIVE) Urine Urobilinogen Normal MG/DL (0.0-1.0) Urine Leukocyte Esterase Negative (NEGATIVE) Urine RBC 10-15 /HPF (0 - 2) H Urine WBC 0-2 /HPF (0 - 2) Urine Squamous Epithelial Cells Moderate /LPF (NONE/OCC) H Urine Bacteria Few /HPF (NONE) Urine Osmolality 351 mOsm/kg (429-449) L Urine Random Sodium 47 mmol/L (20-110) Hemoglobin A1c 6.7 % (4.3-6.0) H Phosphorus Level 2.7 MG/DL (2.5-4.9) C-Reactive Protein, Quantitative 3.0 mg/dL (0.00-0.90) H Pro-B-Type Natriuretic Peptide 3166 pg/mL (0-125) H Current Medications Medications (Trade) Dose Ordered Sig/Meera Route PRN Reason Start Time Stop Time Status Last Admin Dose Admin Acetaminophen (Tylenol) 650 mg Q4H PRN ORAL Mild Pain/Temp > 100.5 12/29/19 22:15 01/28/20 22:14 Albuterol/ Ipratropium (Albuterol/ Ipratropium) 3 ml Q4HRT HHN 12/29/19 23:00 2/22/20 22:59 Apixaban (Eliquis) 2.5 mg Q12H ORAL 12/29/19 23:00 01/28/20 22:59 12/30/19 11:39 Aspirin (ASA) 81 mg DAILY ORAL 12/30/19 09:00 01/29/20 08:59 12/31/19 09:34 Azithromycin 500 mg/Dextrose 275 ml @ 275 mls/hr Q24HRS IV 12/30/19 16:00 01/05/20 16:59 12/30/19 16:05 Buspirone HCl (Buspar) 15 mg BID ORAL 12/30/19 09:00 01/29/20 08:59 12/31/19 09:31 Ceftriaxone Sodium 1 gm/ Dextrose 55 ml @ 110 mls/hr Q24H IVPB 12/30/19 19:00 01/06/20 18:59 12/30/19 18:27 Docusate Sodium (Colace) 100 mg TWICE A DAY ORAL 12/30/19 09:00 01/29/20 08:59 Guaifenesin/ Dextromethorphan (Robitussin DM Syrup) 10 ml Q4H PRN ORAL For Cough 12/29/19 22:15 01/28/20 22:14 Magnesium Hydroxide (Mom) 30 ml DAILYPRN PRN ORAL Constipation 1ST CHOICE 12/29/19 22:15 01/28/20 22:14 Metoprolol Tartrate (Lopressor) 25 mg Q12HR ORAL 12/31/19 09:00 01/30/20 08:59 12/31/19 09:31 Pantoprazole (Protonix) 40 mg EVERY 12 HOURS ORAL 12/30/19 21:00 01/29/20 20:59 12/31/19 09:33 Polyethylene Glycol (Miralax) 17 gm DAILY PRN ORAL Constipation 12/29/19 22:15 01/28/20 22:14 Sodium Chloride 1,000 ml @ 50 mls/hr Q20H IV 12/30/19 15:07 01/29/20 15:06 12/30/19 15:11 Temazepam (Restoril) 15 mg HSPRN PRN ORAL Insomnia 12/29/19 22:30 01/05/20 22:29 Nieves Burgess MD Dec 31, 2019 10:43
[2019-12-31] MEDS: Eliquis 2.5mg tablet ORAL SCH ×2 (11:30→23:29)
[2019-12-31 12:00] VITALS: BP 134/81
--- NOTE | 2019-12-31 13:05 | Nephrology Progress Note ---
Assessment/Plan Problem List: (1) Electrolyte imbalance (2) Anemia (3) Obesity (BMI 30.0-34.9) (4) DMII (diabetes mellitus, type 2) Assessment Admitted with respiratory failure and Hypoxia Pneumonia Low Na and High K ? due to aldactone Azotemia / Dehydration CHF , acute on chronic Anemia- Low Irron Obesity Dementia DM Plan Plan: UA Mag supplement IV Iron Aim to correct lytes monitor renal parameters keep BP and BS and HR in check Pulm and cardiac tune up Subjective ROS Limited/Unobtainable: No Constitutional: Reports: malaise Objective Objective Last 24 Hour Vital Signs Date Time Temp Pulse Resp B/P (MAP) Pulse Ox O2 Delivery O2 Flow Rate FiO2 12/31/19 12:00 97.8 102 22 134/81 (98) 92 12/31/19 09:31 115 132/80 12/31/19 09:00 Room Air 12/31/19 08:00 115 12/31/19 08:00 97.7 128 20 132/80 (97) 92 12/31/19 07:32 94 Room Air 21 12/31/19 04:00 97.5 99 18 125/84 (98) 97 12/31/19 04:00 106 12/31/19 00:00 108 12/31/19 00:00 98.8 123 20 139/93 (108) 97 12/30/19 21:00 Room Air 12/30/19 20:00 97.7 94 18 129/71 (90) 90 12/30/19 20:00 101 12/30/19 19:12 93 Room Air 21 12/30/19 16:10 114 12/30/19 16:00 97.7 132 20 139/86 (103) 95 Intake and Output 12/30/19 12/31/19 19:00 07:00 Intake Total 120 ml Balance 120 ml Intake Oral 120 ml # Voids 5 # Bowel Movements 3 Current Medications Medications (Trade) Dose Ordered Sig/Meera Route PRN Reason Start Time Stop Time Status Last Admin Dose Admin Acetaminophen (Tylenol) 650 mg Q4H PRN ORAL Mild Pain/Temp > 100.5 12/29/19 22:15 01/28/20 22:14 Albuterol/ Ipratropium (Albuterol/ Ipratropium) 3 ml Q4HRT HHN 12/29/19 23:00 01/03/20 22:59 Apixaban (Eliquis) 2.5 mg Q12H ORAL 12/29/19 23:00 01/28/20 22:59 12/31/19 11:30 Aspirin (ASA) 81 mg DAILY ORAL 12/30/19 09:00 01/29/20 08:59 12/31/19 09:34 Azithromycin 500 mg/Dextrose 275 ml @ 275 mls/hr Q24HRS IV 12/30/19 16:00 01/05/20 16:59 12/30/19 16:05 Buspirone HCl (Buspar) 15 mg BID ORAL 12/30/19 09:00 01/29/20 08:59 12/31/19 09:31 Ceftriaxone Sodium 1 gm/ Dextrose 55 ml @ 110 mls/hr Q24H IVPB 12/30/19 19:00 01/06/20 18:59 12/30/19 18:27 Docusate Sodium (Colace) 100 mg TWICE A DAY ORAL 12/30/19 09:00 01/29/20 08:59 Guaifenesin/ Dextromethorphan (Robitussin DM Syrup) 10 ml Q4H PRN ORAL For Cough 12/29/19 22:15 01/28/20 22:14 Magnesium Hydroxide (Mom) 30 ml DAILYPRN PRN ORAL Constipation 1ST CHOICE 12/29/19 22:15 01/28/20 22:14 Metoprolol Tartrate (Lopressor) 25 mg Q12HR ORAL 12/31/19 09:00 01/30/20 08:59 12/31/19 09:31 Pantoprazole (Protonix) 40 mg EVERY 12 HOURS ORAL 12/30/19 21:00 01/29/20 20:59 12/31/19 09:33 Polyethylene Glycol (Miralax) 17 gm DAILY PRN ORAL Constipation 12/29/19 22:15 01/28/20 22:14 Sodium Chloride 1,000 ml @ 50 mls/hr Q20H IV 12/30/19 15:07 01/29/20 15:06 12/31/19 11:30 Temazepam (Restoril) 15 mg HSPRN PRN ORAL Insomnia 12/29/19 22:30 01/05/20 22:29 Laboratory Tests 12/30/19 13:30: White Blood Count 4.0L, Red Blood Count 4.04L, Hemoglobin 11.1L, Hematocrit 33.5L, Mean Corpuscular Volume 83, Mean Corpuscular Hemoglobin 27.6, Mean Corpuscular Hemoglobin Concent 33.2, Red Cell Distribution Width 13.4, Platelet Count 251, Mean Platelet Volume 5.4L, Neutrophils (%) (Auto) 69.8, Lymphocytes ( %) (Auto) 17.0L, Monocytes (%) (Auto) 12.3H, Eosinophils (%) (Auto) 0.2, Basophils (%) (Auto) 0.6, Sodium Level 132L, Potassium Level 4.2, Chloride Level 96L, Carbon Dioxide Level 26, Anion Gap 10, Blood Urea Nitrogen 22H, Creatinine 1.3, Estimat Glomerular Filtration Rate 39.0, Glucose Level 120H, Osmolality 281L, Uric Acid 8.3H, Calcium Level 9.3, Magnesium Level 1.6L, Iron Level 50, Total Iron Binding Capacity 353, Percent Iron Saturation 14L, Unsaturated Iron Binding 303, Ferritin 44, Total Bilirubin 0.3, Aspartate Amino Transf (AST/SGOT) 18, Alanine Aminotransferase (ALT/SGPT) 12, Alkaline Phosphatase 97, Total Protein 6.9, Albumin 3.2L, Globulin 3.7, Albumin/Globulin Ratio 0.9L, Triglycerides Level 91, Cholesterol Level 151, LDL Cholesterol 79, HDL Cholesterol 49, Cholesterol/HDL Ratio 3.1L, Vitamin B12 Level 605, Folate 16.7, Thyroid Stimulating Hormone (TSH) 1.641, Legionella pneumophila Group 1 Ab [Pending], Legionella pneumophilia IgM Group 1 [Pending], Mycoplasma pneumoniae IgG Antibody [Pending], Mycoplasma pneumoniae IgM Ab Titer [Pending] 12/30/19 15:40: Urine Color Pale yellow, Urine Appearance Clear, Urine pH 6.5, Urine Specific [place] 1.010, Urine Protein Negative, Urine Glucose (UA) Negative, Urine Ketones 1+H, Urine Blood 1+H, Urine Nitrite Negative, Urine Bilirubin Negative, Urine Urobilinogen Normal, Urine Leukocyte Esterase Negative, Urine RBC 10-15H, Urine WBC 0-2, Urine Squamous Epithelial Cells ModerateH, Urine Bacteria Few, Urine Osmolality 351L, Urine Random Sodium 47 12/31/19 07:45: White Blood Count 6.8#, Red Blood Count 4.32, Hemoglobin 12.0, Hematocrit 35.9L , Mean Corpuscular Volume 83, Mean Corpuscular Hemoglobin 27.7, Mean Corpuscular Hemoglobin Concent 33.3, Red Cell Distribution Width 12.7, Platelet Count 279, Mean Platelet Volume 5.5L, Neutrophils (%) (Auto) 77.9H, Lymphocytes (%) (Auto) 12.7L, Monocytes (%) (Auto) 8.9, Eosinophils (%) (Auto) 0.1, Basophils (%) (Auto) 0.4, Sodium Level 134L, Potassium Level 4.1, Chloride Level 97L, Carbon Dioxide Level 24, Anion Gap 14, Blood Urea Nitrogen 20H, Creatinine 1.1, Estimat Glomerular Filtration Rate 47.2, Glucose Level 138H, Uric Acid 8.0H, Calcium Level 9.4, Magnesium Level 2.1, Total Bilirubin 0.3, Aspartate Amino Transf (AST/SGOT) 20, Alanine Aminotransferase (ALT/SGPT) 10L, Alkaline Phosphatase 103, Total Protein 7.2, Albumin 3.3L, Globulin 3.9, Albumin /Globulin Ratio 0.8L, Hemoglobin A1c 6.7H, Phosphorus Level 2.7, C-Reactive Protein, Quantitative 3.0H, Pro-B-Type Natriuretic Peptide 3166H Height (Feet): 5 Height (Inches): 1.00 Weight (Pounds): 178 General Appearance: no apparent distress Cardiovascular: tachycardia Respiratory/Chest: decreased breath sounds Abdomen: distended Nakul Matta MD Dec 31, 2019 13:05
--- NOTE | 2019-12-31 15:10 | NUR ---
CASE MANAGEMENT: REVIEW 12/31/19 SI: BRONCHOPNEUMONIA . ACUTE RESPIRATORY INSUFFICIENCY w/HYPOXIA . PNA 97.8 115 22 134/81 92% ON RA BNP 3166 NA+ 134 CL-97 BUN 20 BG 138 HA1Z 6.7 URIC ACID 8.0 IS: IV ROCEPHIN Q24HR IV ZITHROMAX Q24HR [id number] IV NS@50ML/HR LOPRESSOR PO BID ELIQUIS PO BID PROTONIX PO BID BUSPAR PO BID ASA PO QD \: 2E TELE UNIT DCP: PATIENT IS FROM [facility] PLAN: CONTROL HR EDUCATE ON MED COMPLIANCE
[2019-12-31 16:00] VITALS: BP 125/60
[2019-12-31] MEDS: Azithromycin 500 MG in D5W 275 ML IV SCH (16:00)
--- NOTE | 2019-12-31 19:30 | NUR ---
NURSE NOTES: Received pt and report from GARRY Rodriguez. Observed pt resting in bed with both eyes open. Pt is A/Ox3. satellite project site monitor is in placed; pt is A. Fib (113 bpm). IV site intact, asymptomatic, and patent; currently running NS @50cc/hr. Bed is in the lowest position and locked. Call light and bedside table is within reach. No signs/symptoms of acute distress noted at this time. Will continue plan of care.
[2019-12-31] MEDS: cefTRIAXone 1 GM in D5W 55 ML IVPB SCH (19:46)
[2019-12-31 20:00] VITALS: BP 130/80
[2020-01-01] VITALS: BP 131/80
[2020-01-01] MEDS ORDERED: Iron Sucrose 100 MG in NS 55 ML IVPB ONE (01:30)
--- NOTE | 2020-01-01 01:50 | NUR ---
NURSE NOTES: Received new order for Venofer 100mg IVPB ONCE @ 0130. Venofer 100mg IVPB is not available at night. Dr. Neal made aware.
--- NOTE | 2020-01-01 02:27 | NUR ---
NURSE NOTES: Observed pt resting in bed with both eyes open. No signs/symptoms of acute distress noted at this time. Will continue plan of care.
--- NOTE | 2020-01-01 02:30 | Progress Note ---
DATE: 12/31/2019 CARDIOLOGY PROGRESS NOTE SUBJECTIVE: The patient still has cough and congestion. She has less shortness of breath. She is able to lie flat. OBJECTIVE: VITAL SIGNS: Blood pressure 132/80, pulse 115, respirations 20, and afebrile. Monitored rhythm, atrial fibrillation. LUNGS: Coarse breath sounds. Rhonchi. HEART: Irregularly irregular rhythm. Normal S1, S2. ABDOMEN: Soft. EXTREMITIES: A 1+ dependent edema. LABORATORY DATA: White count 6.8 and hemoglobin 12. Sodium 134, potassium 4.1, bicarb 24, BUN 20, and creatinine 1.1. Pro-natriuretic peptide 3100. IMPRESSION: 1. Community-acquired pneumonia. 2. Paroxysmal bronchospasm. 3. Hypomagnesemia, corrected. 4. Hyponatremia, improved. 5. Acute on chronic diastolic congestive heart failure. 6. Hypertensive heart disease. 7. Chronic atrial fibrillation. PLAN: 1. Off intravenous fluids. 2. Antimicrobials. 3. Respiratory hygiene. 4. Iron replacement. 5. Stool occult blood testing. 6. Diuresis if signs of pulmonary venous congestion are noted. 7. Recheck chest radiograph. 8. Cardioembolic prophylaxis. Jarrett Neal M.D. DR: FELISA JOB#: [id number] CC: CHRISTIAN
[2020-01-01] MEDS: Albuterol/Ipratropium 3ml neb HHN SCH ×6 (02:34→23:23)
[2020-01-01 04:00] VITALS: BP 115/75
--- NOTE | 2020-01-01 07:30 | NUR ---
NURSE NOTES: Received pt from MARCH RN, Pt is awake and alert, pt has NC 2LMP. pt has intact iv access LFA and RH 20G is SL. Pt is on continues heart monitoring. no complain of pain at this moment. pt is eating breakfast by observation. all needs attended, bed is locked and is in the lowest position, call light within easy reach. will continue to monitor.
--- NOTE | 2020-01-01 07:38 | NUR ---
HAND-OFF: Report given to GARRY Tang. Pt in bed eating breakfast. Plan of care endorsed.
[2020-01-01 08:00] VITALS: BP 114/74
[2020-01-01] MEDS ORDERED: Iron Sucrose 100 MG in NS 55 ML IV SCH (08:00)
--- NOTE | 2020-01-01 08:58 | NUR ---
RADIOLOGY DEPT., CHEST X-RAY DONE.-P.DYE
--- NOTE | 2020-01-01 09:02 | Nephrology Progress Note ---
Assessment/Plan Problem List: (1) Electrolyte imbalance (2) Anemia (3) Obesity (BMI 30.0-34.9) (4) DMII (diabetes mellitus, type 2) Assessment Admitted with respiratory failure and Hypoxia Pneumonia Low Na and High K ? due to aldactone Azotemia / Dehydration CHF , acute on chronic Anemia- Low Irron Obesity Dementia DM Plan Plan: UA Mag supplement IV Iron Aim to correct lytes monitor renal parameters keep BP and BS and HR in check Pulm and cardiac tune up Subjective ROS Limited/Unobtainable: No Constitutional: Reports: malaise Objective Objective Last 24 Hour Vital Signs Date Time Temp Pulse Resp B/P (MAP) Pulse Ox O2 Delivery O2 Flow Rate FiO2 01/01/20 08:00 97.5 109 20 114/74 (87) 100 01/01/20 07:10 96 Room Air 21 01/01/20 04:00 97.9 118 20 115/75 (88) 97 01/01/20 04:00 118 01/01/20 00:00 103 01/01/20 00:00 98.2 103 20 131/80 (97) 98 12/31/19 21:03 120 130/80 12/31/19 21:00 Room Air 12/31/19 20:00 121 12/31/19 20:00 96.9 121 19 130/80 (97) 96 12/31/19 19:44 95 Room Air 21 12/31/19 16:00 126 12/31/19 16:00 97.9 83 20 125/60 (81) 96 12/31/19 12:00 97.8 102 22 134/81 (98) 92 12/31/19 12:00 111 12/31/19 09:31 115 132/80 Intake and Output 12/31/19 01/01/20 19:00 07:00 Intake Total 300 ml Balance 300 ml Intake Oral 300 ml # Voids 1 2 Current Medications Medications (Trade) Dose Ordered Sig/Meera Route PRN Reason Start Time Stop Time Status Last Admin Dose Admin Acetaminophen (Tylenol) 650 mg Q4H PRN ORAL Mild Pain/Temp > 100.5 12/29/19 22:15 01/28/20 22:14 Albuterol/ Ipratropium (Albuterol/ Ipratropium) 3 ml Q4HRT HHN 12/29/19 23:00 01/03/20 22:59 01/01/20 09:32 Apixaban (Eliquis) 2.5 mg Q12H ORAL 12/29/19 23:00 01/28/20 22:59 01/01/20 11:57 Aspirin (ASA) 81 mg DAILY ORAL 12/30/19 09:00 01/29/20 08:59 01/01/20 09:21 Azithromycin 500 mg/Dextrose 275 ml @ 275 mls/hr Q24HRS IV 12/30/19 16:00 01/05/20 16:59 12/31/19 16:00 Buspirone HCl (Buspar) 15 mg BID ORAL 12/30/19 09:00 01/29/20 08:59 01/01/20 09:21 Ceftriaxone Sodium 1 gm/ Dextrose 55 ml @ 110 mls/hr Q24H IVPB 12/30/19 19:00 01/06/20 18:59 12/31/19 19:46 Digoxin (Lanoxin) 0.25 mg Q2H IVP 01/01/20 14:00 01/01/20 20:01 Docusate Sodium (Colace) 100 mg TWICE A DAY ORAL 12/30/19 09:00 01/29/20 08:59 01/01/20 09:21 Guaifenesin/ Dextromethorphan (Robitussin DM Syrup) 10 ml Q4H PRN ORAL For Cough 12/29/19 22:15 01/28/20 22:14 Iron Sucrose 100 mg/Sodium Chloride 60 ml @ 240 mls/hr BEDTIME IV 01/01/20 21:00 01/05/20 21:14 Magnesium Hydroxide (Mom) 30 ml DAILYPRN PRN ORAL Constipation 1ST CHOICE 12/29/19 22:15 01/28/20 22:14 Metoprolol Tartrate (Lopressor) 25 mg Q12HR ORAL 12/31/19 09:00 01/30/20 08:59 01/01/20 09:21 Pantoprazole (Protonix) 40 mg EVERY 12 HOURS ORAL 12/30/19 21:00 01/29/20 20:59 01/01/20 09:21 Polyethylene Glycol (Miralax) 17 gm DAILY PRN ORAL Constipation 12/29/19 22:15 01/28/20 22:14 Temazepam (Restoril) 15 mg HSPRN PRN ORAL Insomnia 12/29/19 22:30 01/05/20 22:29 Height (Feet): 5 Height (Inches): 1.00 Weight (Pounds): 178 General Appearance: no apparent distress Cardiovascular: tachycardia Respiratory/Chest: lungs clear Abdomen: soft Objective no change Nakul Matta MD Jan 01, 2020 09:02
[2020-01-01] MEDS: Docusate 100mg cap ORAL SCH ×2 (09:21→18:12)
[2020-01-01] MEDS: Aspirin Baby 81mg ORAL SCH (09:21)
[2020-01-01] MEDS: BusPIRone 5mg Tab ORAL SCH ×2 (09:21→18:13)
--- NOTE | 2020-01-01 10:22 | Infectious Diseases Prog Note ---
Assessment/Plan Assessment/Plan A 1. pneumonia, bronchitis 2. diabetes mellitus 3. hypertension 4. atrial fibrillation 5. CVA 6. dementia P 1. continue ceftriaxone, azithromycin 2. will follow up cultures Subjective ROS Limited/Unobtainable: Yes Respiratory: Reports: no symptoms Cardiovascular: Reports: no symptoms Gastrointestinal/Abdominal: Reports: no symptoms Genitourinary: Reports: no symptoms Allergies: Coded Allergies: No Known Allergies (Unverified , 12/29/19) Objective Vital Signs Last 24 Hour Vital Signs Date Time Temp Pulse Resp B/P (MAP) Pulse Ox O2 Delivery O2 Flow Rate FiO2 01/01/20 09:32 101 22 99 Nasal Cannula 2.0 28 98 22 97 01/01/20 09:21 109 114/74 01/01/20 08:00 97.5 109 20 114/74 (87) 100 01/01/20 07:10 96 Room Air 21 01/01/20 04:00 97.9 118 20 115/75 (88) 97 01/01/20 04:00 118 01/01/20 00:00 103 01/01/20 00:00 98.2 103 20 131/80 (97) 98 12/31/19 21:03 120 130/80 12/31/19 21:00 Room Air 12/31/19 20:00 121 12/31/19 20:00 96.9 121 19 130/80 (97) 96 12/31/19 19:44 95 Room Air 21 12/31/19 16:00 126 12/31/19 16:00 97.9 83 20 125/60 (81) 96 12/31/19 12:00 97.8 102 22 134/81 (98) 92 12/31/19 12:00 111 Height (Feet): 5 Height (Inches): 1.00 Weight (Pounds): 178 General Appearance: no acute distress HEENT: mucous membranes moist Respiratory/Chest: lungs clear, other - Oxygen by nasal cannula Cardiovascular: tachycardia Abdomen: soft, non tender Extremities: other - legs nikki Neurologic/Psychiatric: alert, responsive Microbiology Date/Time Source Procedure Growth Status 12/29/19 15:20 Nasal Nares - Final Complete 12/29/19 15:20 Nasal Nares - Final Complete 12/29/19 19:20 Rectum VRE Culture - Final NO VANCOMYCIN RESISTANT ENTEROCOCCUS ... Complete Current Medications Medications (Trade) Dose Ordered Sig/Meera Route PRN Reason Start Time Stop Time Status Last Admin Dose Admin Acetaminophen (Tylenol) 650 mg Q4H PRN ORAL Mild Pain/Temp > 100.5 12/29/19 22:15 01/28/20 22:14 Albuterol/ Ipratropium (Albuterol/ Ipratropium) 3 ml Q4HRT HHN 12/29/19 23:00 01/03/20 22:59 01/01/20 09:32 Apixaban (Eliquis) 2.5 mg Q12H ORAL 12/29/19 23:00 01/28/20 22:59 12/31/19 23:29 Aspirin (ASA) 81 mg DAILY ORAL 12/30/19 09:00 01/29/20 08:59 01/01/20 09:21 Azithromycin 500 mg/Dextrose 275 ml @ 275 mls/hr Q24HRS IV 12/30/19 16:00 01/05/20 16:59 12/31/19 16:00 Buspirone HCl (Buspar) 15 mg BID ORAL 12/30/19 09:00 01/29/20 08:59 01/01/20 09:21 Ceftriaxone Sodium 1 gm/ Dextrose 55 ml @ 110 mls/hr Q24H IVPB 12/30/19 19:00 01/06/20 18:59 12/31/19 19:46 Docusate Sodium (Colace) 100 mg TWICE A DAY ORAL 12/30/19 09:00 01/29/20 08:59 01/01/20 09:21 Guaifenesin/ Dextromethorphan (Robitussin DM Syrup) 10 ml Q4H PRN ORAL For Cough 12/29/19 22:15 01/28/20 22:14 Iron Sucrose 100 mg/Sodium Chloride 60 ml @ 240 mls/hr BEDTIME IV 01/01/20 21:00 01/05/20 21:14 Magnesium Hydroxide (Mom) 30 ml DAILYPRN PRN ORAL Constipation 1ST CHOICE 12/29/19 22:15 01/28/20 22:14 Metoprolol Tartrate (Lopressor) 25 mg Q12HR ORAL 12/31/19 09:00 01/30/20 08:59 01/01/20 09:21 Pantoprazole (Protonix) 40 mg EVERY 12 HOURS ORAL 12/30/19 21:00 01/29/20 20:59 01/01/20 09:21 Polyethylene Glycol (Miralax) 17 gm DAILY PRN ORAL Constipation 12/29/19 22:15 01/28/20 22:14 Temazepam (Restoril) 15 mg HSPRN PRN ORAL Insomnia 12/29/19 22:30 01/05/20 22:29 Bhavik Fortune MD Jan 01, 2020 10:22
--- NOTE | 2020-01-01 10:52 | Diagnostic Imaging Report ---
Indication: Abnormal chest sounds Technique: One view of the chest Comparison: 12/29/2019 Findings: Heart is enlarged. Bilateral interstitial prominence persists, unchanged no new infiltrates. Pleural spaces are grossly clear. Impression: Unchanged, over 3 days, findings as above.
[2020-01-01] MEDS: Eliquis 2.5mg tablet ORAL SCH ×2 (11:57→23:30)
[2020-01-01 12:00] VITALS: BP 103/56
[2020-01-01] MEDS: Digoxin 0.5mg/2ml Inj IVP SCH ×4 (13:38→20:24)
--- NOTE | 2020-01-01 13:41 | NUR ---
NURSE NOTES: 0.25mg digoxin wasted in med room with witness MANNY ROSSI. Will continue to monitor.
--- NOTE | 2020-01-01 14:19 | NUR ---
*-* NO INFORMATION IN THE BAR UNABLE TO SEND CLINICALS OR REVIEWS *-*
[2020-01-01 16:00] VITALS: BP 113/70
[2020-01-01] MEDS: Azithromycin 500 MG in D5W 275 ML IV SCH (16:17)
--- NOTE | 2020-01-01 16:30 | NUR ---
NURSE NOTES: 0.25mg digoxin wasted in med room with witness MANNY ROSSI. Will continue to monitor.
--- NOTE | 2020-01-01 17:07 | Pulmonology Progress Note ---
Assessment/Plan Assessment/Plan IMPRESSION: 1. Acute bronchitis versus pneumonia. 2. CVA. 3. Dementia. 4. Paroxysmal atrial fibrillation. 5. Hypertension. DISCUSSION: 1. Continue present care 2. Agree with broad-spectrum antibiotics. 3. 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 4. Use oxygen prn. Oliver Porras M.D. Subjective Interval Events: None new Constitutional: Reports: no symptoms HEENT: Repors: no symptoms Respiratory: Reports: no symptoms Cardiovascular: Reports: no symptoms Gastrointestinal/Abdominal: Reports: no symptoms Genitourinary: Reports: no symptoms Allergies: Coded Allergies: No Known Allergies (Unverified , 12/29/19) Objective Last 24 Hour Vital Signs Date Time Temp Pulse Resp B/P (MAP) Pulse Ox O2 Delivery O2 Flow Rate FiO2 01/01/20 16:18 122 01/01/20 15:51 66 20 99 Nasal Cannula 2.0 28 67 20 98 01/01/20 13:38 122 01/01/20 12:00 96.6 117 20 103/56 (72) 98 01/01/20 11:37 117 01/01/20 09:32 101 22 99 Nasal Cannula 2.0 28 98 22 97 01/01/20 09:21 109 114/74 01/01/20 09:00 Room Air 01/01/20 08:00 97.5 109 20 114/74 (87) 100 01/01/20 07:27 122 01/01/20 07:10 96 Room Air 21 01/01/20 04:00 97.9 118 20 115/75 (88) 97 01/01/20 04:00 118 01/01/20 00:00 103 01/01/20 00:00 98.2 103 20 131/80 (97) 98 12/31/19 21:03 120 130/80 12/31/19 21:00 Room Air 12/31/19 20:00 121 12/31/19 20:00 96.9 121 19 130/80 (97) 96 12/31/19 19:44 95 Room Air 21 Intake and Output 12/31/19 01/01/20 19:00 07:00 Intake Total 300 ml Balance 300 ml Intake Oral 300 ml # Voids 1 2 General Appearance: no acute distress HEENT: normocephalic Respiratory/Chest: chest wall non-tender, lungs clear Cardiovascular: normal peripheral pulses Abdomen: normal bowel sounds Microbiology Date/Time Source Procedure Growth Status 01/01/20 06:00 Sputum Gram Stain - Final Resulted 01/01/20 06:00 Sputum Sputum Culture Pending Resulted 12/29/19 19:20 Nasal Nares MRSA Culture - Final NO METHICILLIN RESISTANT STAPH AUREUS... Complete 12/29/19 19:20 Rectum VRE Culture - Final NO VANCOMYCIN RESISTANT ENTEROCOCCUS ... Complete Current Medications Medications (Trade) Dose Ordered Sig/Meera Route PRN Reason Start Time Stop Time Status Last Admin Dose Admin Acetaminophen (Tylenol) 650 mg Q4H PRN ORAL Mild Pain/Temp > 100.5 12/29/19 22:15 01/28/20 22:14 Albuterol/ Ipratropium (Albuterol/ Ipratropium) 3 ml Q4HRT HHN 12/29/19 23:00 01/03/20 22:59 01/01/20 15:51 Apixaban (Eliquis) 2.5 mg Q12H ORAL 12/29/19 23:00 01/28/20 22:59 01/01/20 11:57 Aspirin (ASA) 81 mg DAILY ORAL 12/30/19 09:00 01/29/20 08:59 01/01/20 09:21 Azithromycin 500 mg/Dextrose 275 ml @ 275 mls/hr Q24HRS IV 12/30/19 16:00 01/05/20 16:59 01/01/20 16:17 Buspirone HCl (Buspar) 15 mg BID ORAL 12/30/19 09:00 01/29/20 08:59 01/01/20 09:21 Ceftriaxone Sodium 1 gm/ Dextrose 55 ml @ 110 mls/hr Q24H IVPB 12/30/19 19:00 01/06/20 18:59 12/31/19 19:46 Digoxin (Lanoxin) 0.25 mg Q2H IVP 01/01/20 14:00 01/01/20 20:01 01/01/20 16:18 Docusate Sodium (Colace) 100 mg TWICE A DAY ORAL 12/30/19 09:00 01/29/20 08:59 01/01/20 09:21 Guaifenesin/ Dextromethorphan (Robitussin DM Syrup) 10 ml Q4H PRN ORAL For Cough 12/29/19 22:15 01/28/20 22:14 Iron Sucrose 100 mg/Sodium Chloride 60 ml @ 240 mls/hr BEDTIME IV 01/01/20 21:00 01/05/20 21:14 Magnesium Hydroxide (Mom) 30 ml DAILYPRN PRN ORAL Constipation 1ST CHOICE 12/29/19 22:15 01/28/20 22:14 Metoprolol Tartrate (Lopressor) 25 mg Q12HR ORAL 12/31/19 09:00 01/30/20 08:59 01/01/20 09:21 Pantoprazole (Protonix) 40 mg EVERY 12 HOURS ORAL 12/30/19 21:00 01/29/20 20:59 01/01/20 09:21 Polyethylene Glycol (Miralax) 17 gm DAILY PRN ORAL Constipation 12/29/19 22:15 01/28/20 22:14 Temazepam (Restoril) 15 mg HSPRN PRN ORAL Insomnia 12/29/19 22:30 01/05/20 22:29 Oliver Porras MD Jan 01, 2020 17:07
[2020-01-01] MEDS: cefTRIAXone 1 GM in D5W 55 ML IVPB SCH (18:13)
--- NOTE | 2020-01-01 18:22 | NUR ---
NURSE NOTES: 0.25mg digoxin wasted in med room with witness MANNY ROSSI. Will continue to monitor.
[2020-01-01 20:00] VITALS: BP 109/67
--- NOTE | 2020-01-01 20:00 | NUR ---
NURSE NOTES: RECEIVED PATIENT LYING IN BED, AWAKE, ALERT/ORIENTED TO SELF, CONFUSED, ANXIOUS, REALITY ORIENTATION PROVIDED DURING ASSESSMENT. NO SIGNS AND SYMPTOMS OF ACUTE CARDIO RESPIRATORY DISTRESS/SHORTNESS OF BREATH, TRACE EDEMA TO BILATERAL LOWER EXTREMITIES, NOTED WITH EXPIRATORY WHEEZING, HEAD OF BED ELEVATED TO FACILITATE BREATHING. CONTINUE ON OVERSEER KOSHER KITCHEN. ABDOMEN SOFT/NON DISTENDED/NON TENDER, AUDIBLE BOWEL SOUNDS, NO N/V. SIDE RAILS UP X3/BED IN LOWEST POSITION FOR SAFETY, ENCOURAGED PATIENT TO UTILIZE CALL LIGHT FOR ASSISTANCE, VERBALIZED UNDERSTANDING. CONTINUE WITH CURRENT PLAN OF CARE. NAD.
--- NOTE | 2020-01-01 20:23 | NUR ---
HAND-OFF: Report given to JOCELYNE LOCKE. Pt is awake and stable, HR 93.
[2020-01-01] MEDS: Iron Sucrose 100 MG in NS 55 ML IV SCH (20:31)
[2020-01-02] VITALS: BP 102/66
--- NOTE | 2020-01-02 00:45 | Progress Note ---
DATE: 01/01/2020 CARDIOLOGY AND INTERNAL MEDICINE PROGRESS NOTE SUBJECTIVE: The patient still is anxious and at times agitated. She has cough and congestion, but has improved overall. OBJECTIVE: VITAL SIGNS: Blood pressure 114/74, pulse 109, respiratory rate 20, afebrile. Monitor atrial fibrillation. LUNGS: Coarse breath sounds, rhonchi. HEART: Irregularly irregular rhythm. Normal S1, S2. ABDOMEN: Soft. EXTREMITIES: Trace edema. LABORATORY DATA: Cultures remain negative. White count 6.8, hemoglobin 12 yesterday. Chest x-ray today reveals interstitial prominence. IMPRESSION: 1. Community-acquired pneumonia. 2. Acute on chronic diastolic congestive heart failure. 3. Hyponatremia, improved. 4. Type 2 diabetes mellitus. 5. Atrial fibrillation with episodes of rapid ventricular response. PLAN: 1. Digitalization. 2. Continue beta-aaron. 3. Antimicrobials. 4. Respiratory hygiene. 5. Diuresis. 6. Recheck laboratory studies. 7. Avoid Aldactone. Jarrett Neal M.D. DR: TAYLOR JOB#: [id number] CC:
[2020-01-02] MEDS: Albuterol/Ipratropium 3ml neb HHN SCH ×6 (03:22→23:24)
[2020-01-02 04:00] VITALS: BP 111/68
--- NOTE | 2020-01-02 06:00 | NUR ---
NURSE NOTES: SAFETY MAINTAINED, NO SIGNIFICANT CHANGE OF CONDITION NOTED THROUGHOUT THE NIGHT. RESTED WELL. NAD.
--- NOTE | 2020-01-02 07:30 | NUR ---
HAND-OFF: Report given to JOCELYNE SEGURA.
[2020-01-02 08:00] VITALS: BP 131/71
[2020-01-02] MEDS: BusPIRone 5mg Tab ORAL SCH ×2 (09:20→17:24)
[2020-01-02] MEDS: Docusate 100mg cap ORAL SCH ×2 (09:20→17:24)
[2020-01-02] MEDS: Aspirin Baby 81mg ORAL SCH (09:21)
[2020-01-02 09:28] LABS: HEMATOCRIT 34.3 % (37.0-47.0); HEMOGLOBIN 11.1 G/DL (12.0-16.0); LYMPHOCYTES % (AUTO) 12.7 % (20.0-45.0); MEAN CORPUSCULAR VOLUME 84 FL (80-99); MONOCYTES % (AUTO) 9.5 % (1.0-10.0); NEUTROPHILS % (AUTO) 76.8 % (45.0-75.0); PLATELET COUNT 248 K/UL (150-450); RED BLOOD COUNT 4.07 M/UL (4.20-5.40); RED CELL DISTRIBUTION WIDTH 13.2 % (11.6-14.8); WHITE BLOOD COUNT 6.6 K/UL (4.8-10.8)
[2020-01-02 09:29] LABS: BASOPHILS % (AUTO) 0.9 % (0.0-2.0); EOSINOPHILS % (AUTO) 0.1 % (0.0-3.0)
--- NOTE | 2020-01-02 10:00 | Infectious Diseases Prog Note ---
Assessment/Plan Assessment/Plan antibiotics : ceftriaxone, azithromycin A 1. pneumonia improving 2. diabetes mellitus 3. hypertension 4. atrial fibrillation 5. CVA 6. dementia P 1. continue ceftriaxone 2. d/c azithromycin 3. will follow up cultures Subjective Constitutional: Denies: fever, chills Respiratory: Reports: shortness of breath, productive cough - decreased Gastrointestinal/Abdominal: Denies: nausea, vomiting, diarrhea Musculoskeletal: Denies: pain Allergies: Coded Allergies: No Known Allergies (Unverified , 12/29/19) Objective Vital Signs Last 24 Hour Vital Signs Date Time Temp Pulse Resp B/P (MAP) Pulse Ox O2 Delivery O2 Flow Rate FiO2 01/02/20 09:21 61 131/71 01/02/20 08:00 98.7 61 18 131/71 (91) 96 01/02/20 07:06 89 17 100 Nasal Cannula 2.0 28 91 18 98 01/02/20 06:56 98 Nasal Cannula 2.0 28 01/02/20 06:45 90 01/02/20 04:00 97.2 77 18 111/68 (82) 99 01/02/20 03:22 73 15 100 Nasal Cannula 2.0 28 70 16 99 01/02/20 00:00 97.5 75 18 102/66 (78) 98 01/01/20 23:23 90 18 97 Nasal Cannula 2.0 28 88 18 95 01/01/20 21:00 89 101/59 01/01/20 21:00 Room Air 01/01/20 20:24 92 01/01/20 20:00 88 01/01/20 20:00 97.5 91 22 109/67 (81) 100 01/01/20 19:45 92 20 95 Room Air 21 90 20 93 01/01/20 19:43 93 Room Air 21 01/01/20 18:13 103 01/01/20 16:42 116 01/01/20 16:18 122 01/01/20 16:00 96.7 113 18 113/70 (84) 98 01/01/20 15:51 66 20 99 Nasal Cannula 2.0 28 67 20 98 01/01/20 13:38 122 01/01/20 12:00 96.6 117 20 103/56 (72) 98 01/01/20 11:37 117 Height (Feet): 5 Height (Inches): 1.00 Weight (Pounds): 178 Respiratory/Chest: lungs clear Cardiovascular: normal rate, regular rhythm, no gallop/murmur Abdomen: soft, non tender Extremities: other - + edema Microbiology Date/Time Source Procedure Growth Status 01/01/20 06:00 Sputum Gram Stain - Final Resulted 01/01/20 06:00 Sputum Sputum Culture Pending Resulted Laboratory Tests Test 01/02/20 08:30 White Blood Count 6.6 K/UL (4.8-10.8) Red Blood Count 4.07 M/UL (4.20-5.40) L Hemoglobin 11.1 G/DL (12.0-16.0) L Hematocrit 34.3 % (37.0-47.0) L Mean Corpuscular Volume 84 FL (80-99) Mean Corpuscular Hemoglobin 27.3 PG (27.0-31.0) Mean Corpuscular Hemoglobin Concent 32.4 G/DL (32.0-36.0) Red Cell Distribution Width 13.2 % (11.6-14.8) Platelet Count 248 K/UL (150-450) Mean Platelet Volume 5.9 FL (6.5-10.1) L Neutrophils (%) (Auto) 76.8 % (45.0-75.0) H Lymphocytes (%) (Auto) 12.7 % (20.0-45.0) L Monocytes (%) (Auto) 9.5 % (1.0-10.0) Eosinophils (%) (Auto) 0.1 % (0.0-3.0) Basophils (%) (Auto) 0.9 % (0.0-2.0) Sodium Level Pending Potassium Level Pending Chloride Level Pending Carbon Dioxide Level Pending Blood Urea Nitrogen Pending Creatinine Pending Estimat Glomerular Filtration Rate Pending Glucose Level Pending Uric Acid Pending Calcium Level Pending Phosphorus Level Pending Magnesium Level Pending Total Bilirubin Pending Aspartate Amino Transf (AST/SGOT) Pending Alanine Aminotransferase (ALT/SGPT) Pending Alkaline Phosphatase Pending Pro-B-Type Natriuretic Peptide Pending Total Protein Pending Albumin Pending Globulin Pending Current Medications Medications (Trade) Dose Ordered Sig/Meera Route PRN Reason Start Time Stop Time Status Last Admin Dose Admin Acetaminophen (Tylenol) 650 mg Q4H PRN ORAL Mild Pain/Temp > 100.5 12/29/19 22:15 01/28/20 22:14 Albuterol/ Ipratropium (Albuterol/ Ipratropium) 3 ml Q4HRT HHN 12/29/19 23:00 01/03/20 22:59 01/02/20 06:56 Apixaban (Eliquis) 2.5 mg Q12H ORAL 12/29/19 23:00 01/28/20 22:59 01/01/20 23:30 Aspirin (ASA) 81 mg DAILY ORAL 12/30/19 09:00 01/29/20 08:59 01/02/20 09:21 Azithromycin 500 mg/Dextrose 275 ml @ 275 mls/hr Q24HRS IV 12/30/19 16:00 01/05/20 16:59 01/01/20 16:17 Buspirone HCl (Buspar) 15 mg BID ORAL 12/30/19 09:00 01/29/20 08:59 01/02/20 09:20 Ceftriaxone Sodium 1 gm/ Dextrose 55 ml @ 110 mls/hr Q24H IVPB 12/30/19 19:00 01/06/20 18:59 01/01/20 18:13 Docusate Sodium (Colace) 100 mg TWICE A DAY ORAL 12/30/19 09:00 01/29/20 08:59 01/02/20 09:20 Guaifenesin/ Dextromethorphan (Robitussin DM Syrup) 10 ml Q4H PRN ORAL For Cough 12/29/19 22:15 01/28/20 22:14 Iron Sucrose 100 mg/Sodium Chloride 60 ml @ 240 mls/hr BEDTIME IV 01/01/20 21:00 01/05/20 21:14 01/01/20 20:31 Magnesium Hydroxide (Mom) 30 ml DAILYPRN PRN ORAL Constipation 1ST CHOICE 12/29/19 22:15 01/28/20 22:14 Metoprolol Tartrate (Lopressor) 25 mg Q12HR ORAL 12/31/19 09:00 01/30/20 08:59 01/02/20 09:21 Pantoprazole (Protonix) 40 mg EVERY 12 HOURS ORAL 12/30/19 21:00 01/29/20 20:59 01/02/20 09:21 Polyethylene Glycol (Miralax) 17 gm DAILY PRN ORAL Constipation 12/29/19 22:15 01/28/20 22:14 Temazepam (Restoril) 15 mg HSPRN PRN ORAL Insomnia 12/29/19 22:30 01/05/20 22:29 Nieves Burgess MD Jan 02, 2020 10:00
[2020-01-02 10:26] LABS: ALANINE AMINOTRANSFERASE 16 U/L (12-78); ALBUMIN/GLOBULIN RATIO 0.8 (1.0-2.7); ALKALINE PHOSPHATASE 91 U/L (46-116); ANION GAP 13 mmol/L (5-15); ASPARTATE AMINO TRANSFERASE 24 U/L (15-37); BILIRUBIN,TOTAL 0.6 MG/DL (0.2-1.0); BLOOD UREA NITROGEN 26 mg/dL (7-18); CALCIUM 9.6 MG/DL (8.5-10.1); CARBON DIOXIDE 25 MMOL/L (21-32); CHLORIDE 100 MMOL/L (98-107); CREATININE 1.1 MG/DL (0.55-1.30); POTASSIUM 4.5 MMOL/L (3.5-5.1); SODIUM 138 MMOL/L (136-145)
--- NOTE | 2020-01-02 10:26 | NUR ---
NURSE NOTES: Received pt from Elvira., Pt is A/A/OX2, verbally responsive in syriac. pt on O2 2L via NC. IV access patent and intact. no c/o pain/discomfort noted. keep bed in the lowest position, locked and alarm engaged. call light within easy reach. will continue to monitor.
--- NOTE | 2020-01-02 10:30 | NUR ---
NURSE NOTES: seen by Bryce MERINO and able to walk patient in the room. no acute distress noted. kept HOB elevated to facilitate breathing. elevate BLE.
[2020-01-02 10:50] LABS: PHOSPHORUS 2.7 MG/DL (2.5-4.9)
--- NOTE | 2020-01-02 10:57 | NUR ---
NURSE NOTES: called Dr. Neal's office and spoke with Marina. relay BNP result today. awaiting for a callback.
--- NOTE | 2020-01-02 11:20 | NUR ---
CASE MANAGEMENT: REVIEW 01/02/2020 SI:PNA. A/C CHF T 98.7 HR 61 RR 18 B/P 131/71 SATS 96% ON 2L/NC LABS: BUN 26 GLU 162 BNP [id number] IS:VENOFER IV QHS ASA PO QD ELIQUIS PO Q12H LOPRESSOR PO Q12H CEFTRIAXONE IV Q24H AZITHROMYCIN IV Q24H TELE PLAN OF CARE: PT EVAL broad-spectrum antibiotics
[2020-01-02] MEDS: Eliquis 2.5mg tablet ORAL SCH ×2 (11:32→23:59)
[2020-01-02 12:00] VITALS: BP 135/83
--- NOTE | 2020-01-02 13:21 | Nephrology Progress Note ---
Assessment/Plan Problem List: (1) Electrolyte imbalance (2) Anemia (3) Obesity (BMI 30.0-34.9) (4) DMII (diabetes mellitus, type 2) Assessment Admitted with respiratory failure and Hypoxia Pneumonia Low Na and High K ? due to aldactone Azotemia / Dehydration CHF , acute on chronic Anemia- Low Irron Obesity Dementia DM Plan Plan: UA Mag supplement IV Iron Aim to correct lytes monitor renal parameters keep BP and BS and HR in check Pulm and cardiac tune up Subjective ROS Limited/Unobtainable: No Constitutional: Reports: malaise Objective Objective Last 24 Hour Vital Signs Date Time Temp Pulse Resp B/P (MAP) Pulse Ox O2 Delivery O2 Flow Rate FiO2 01/02/20 12:00 97.7 85 20 135/83 (100) 97 01/02/20 11:15 91 18 99 Nasal Cannula 2.0 28 83 16 98 01/02/20 09:21 61 131/71 01/02/20 08:00 98.7 61 18 131/71 (91) 96 01/02/20 07:06 89 17 100 Nasal Cannula 2.0 28 91 18 98 01/02/20 06:56 98 Nasal Cannula 2.0 28 01/02/20 06:45 90 01/02/20 04:00 97.2 77 18 111/68 (82) 99 01/02/20 03:22 73 15 100 Nasal Cannula 2.0 28 70 16 99 01/02/20 00:00 97.5 75 18 102/66 (78) 98 01/01/20 23:23 90 18 97 Nasal Cannula 2.0 28 88 18 95 01/01/20 21:00 89 101/59 01/01/20 21:00 Room Air 01/01/20 20:24 92 01/01/20 20:00 88 01/01/20 20:00 97.5 91 22 109/67 (81) 100 01/01/20 19:45 92 20 95 Room Air 21 90 20 93 01/01/20 19:43 93 Room Air 21 01/01/20 18:13 103 01/01/20 16:42 116 01/01/20 16:18 122 01/01/20 16:00 96.7 113 18 113/70 (84) 98 01/01/20 15:51 66 20 99 Nasal Cannula 2.0 28 67 20 98 01/01/20 13:38 122 Intake and Output 01/01/20 01/02/20 19:00 07:00 Intake Total 750 ml 120 ml Balance 750 ml 120 ml Intake Oral 360 ml 120 ml IV Total 390 ml # Voids 2 4 Current Medications Medications (Trade) Dose Ordered Sig/Meera Route PRN Reason Start Time Stop Time Status Last Admin Dose Admin Acetaminophen (Tylenol) 650 mg Q4H PRN ORAL Mild Pain/Temp > 100.5 12/29/19 22:15 01/28/20 22:14 Albuterol/ Ipratropium (Albuterol/ Ipratropium) 3 ml Q4HRT HHN 12/29/19 23:00 01/03/20 22:59 01/02/20 11:07 Apixaban (Eliquis) 2.5 mg Q12H ORAL 12/29/19 23:00 01/28/20 22:59 01/02/20 11:32 Aspirin (ASA) 81 mg DAILY ORAL 12/30/19 09:00 01/29/20 08:59 01/02/20 09:21 Azithromycin 500 mg/Dextrose 275 ml @ 275 mls/hr Q24HRS IV 12/30/19 16:00 01/05/20 16:59 01/01/20 16:17 Buspirone HCl (Buspar) 15 mg BID ORAL 12/30/19 09:00 01/29/20 08:59 01/02/20 09:20 Ceftriaxone Sodium 1 gm/ Dextrose 55 ml @ 110 mls/hr Q24H IVPB 12/30/19 19:00 01/06/20 18:59 01/01/20 18:13 Docusate Sodium (Colace) 100 mg TWICE A DAY ORAL 12/30/19 09:00 01/29/20 08:59 01/02/20 09:20 Furosemide (Lasix) 40 mg ONCE IV 01/02/20 12:45 01/02/20 14:00 Guaifenesin/ Dextromethorphan (Robitussin DM Syrup) 10 ml Q4H PRN ORAL For Cough 12/29/19 22:15 01/28/20 22:14 Iron Sucrose 100 mg/Sodium Chloride 60 ml @ 240 mls/hr BEDTIME IV 01/01/20 21:00 01/05/20 21:14 01/01/20 20:31 Magnesium Hydroxide (Mom) 30 ml DAILYPRN PRN ORAL Constipation 1ST CHOICE 12/29/19 22:15 01/28/20 22:14 Metoprolol Tartrate (Lopressor) 25 mg Q12HR ORAL 12/31/19 09:00 01/30/20 08:59 01/02/20 09:21 Pantoprazole (Protonix) 40 mg EVERY 12 HOURS ORAL 12/30/19 21:00 01/29/20 20:59 01/02/20 09:21 Polyethylene Glycol (Miralax) 17 gm DAILY PRN ORAL Constipation 12/29/19 22:15 01/28/20 22:14 Temazepam (Restoril) 15 mg HSPRN PRN ORAL Insomnia 12/29/19 22:30 01/05/20 22:29 Laboratory Tests 01/02/20 08:30: White Blood Count 6.6, Red Blood Count 4.07L, Hemoglobin 11.1L, Hematocrit 34.3L , Mean Corpuscular Volume 84, Mean Corpuscular Hemoglobin 27.3, Mean Corpuscular Hemoglobin Concent 32.4, Red Cell Distribution Width 13.2, Platelet Count 248, Mean Platelet Volume 5.9L, Neutrophils (%) (Auto) 76.8H, Lymphocytes (%) (Auto) 12.7L, Monocytes (%) (Auto) 9.5, Eosinophils (%) (Auto) 0.1, Basophils (%) (Auto) 0.9, Sodium Level 138, Potassium Level 4.5, Chloride Level 100, Carbon Dioxide Level 25, Anion Gap 13, Blood Urea Nitrogen 26H, Creatinine 1.1, Estimat Glomerular Filtration Rate 47.2, Glucose Level 162H, Uric Acid 9.0H , Calcium Level 9.6, Phosphorus Level 2.7, Magnesium Level 1.8, Total Bilirubin 0.6, Aspartate Amino Transf (AST/SGOT) 24, Alanine Aminotransferase (ALT/SGPT) 16, Alkaline Phosphatase 91, Pro-B-Type Natriuretic Peptide 37195C, Total Protein 6.7, Albumin 3.0L, Globulin 3.7, Albumin/Globulin Ratio 0.8L Height (Feet): 5 Height (Inches): 1.00 Weight (Pounds): 178 General Appearance: no apparent distress Cardiovascular: normal rate Respiratory/Chest: decreased breath sounds Abdomen: soft Objective no change Nakul Matta MD Jan 02, 2020 13:21
--- NOTE | 2020-01-02 13:36 | NUR ---
P.T Note: P.T evaluation completed and tx initiated. Please refer to P.T evaluation for current functional status. Skilled P.T service is warranted to improve strength and endurance to increase activity tolerance , mobility independence and safety. Recommend SNF for further rehab intervention at [place]. Pt is cleared for OOB activities with nursing assistance using the FWW. Addendum: 01/02/20 at 1336 by TJ BRUSH PT Amended: Links added.
[2020-01-02 16:00] VITALS: BP 102/56
[2020-01-02] MEDS ORDERED: Azithromycin 250mg tab ORAL SCH (16:00)
--- NOTE | 2020-01-02 19:03 | Pulmonology Progress Note ---
Assessment/Plan Assessment/Plan IMPRESSION: 1. Acute bronchitis versus pneumonia. 2. CVA. 3. Dementia. 4. Paroxysmal atrial fibrillation. 5. Hypertension. DISCUSSION: 1. Continue present care 2. Agree with broad-spectrum antibiotics. 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 4. Use oxygen prn. Oliver Porras M.D. Subjective Interval Events: None new Constitutional: Reports: no symptoms HEENT: Repors: no symptoms Respiratory: Reports: no symptoms Cardiovascular: Reports: no symptoms Allergies: Coded Allergies: No Known Allergies (Unverified , 12/29/19) Objective Last 24 Hour Vital Signs Date Time Temp Pulse Resp B/P (MAP) Pulse Ox O2 Delivery O2 Flow Rate FiO2 01/02/20 16:32 96 01/02/20 16:00 97.7 78 19 102/56 (71) 100 01/02/20 15:17 77 16 98 Room Air 21 76 15 97 01/02/20 12:00 97.7 85 20 135/83 (100) 97 01/02/20 11:48 92 01/02/20 11:15 91 18 99 Nasal Cannula 2.0 28 83 16 98 01/02/20 09:21 61 131/71 01/02/20 09:00 Room Air 01/02/20 08:00 98.7 61 18 131/71 (91) 96 01/02/20 07:48 87 01/02/20 07:06 89 17 100 Nasal Cannula 2.0 28 91 18 98 01/02/20 06:56 98 Nasal Cannula 2.0 28 01/02/20 06:45 90 01/02/20 04:00 97.2 77 18 111/68 (82) 99 01/02/20 03:22 73 15 100 Nasal Cannula 2.0 28 70 16 99 01/02/20 00:00 97.5 75 18 102/66 (78) 98 01/01/20 23:23 90 18 97 Nasal Cannula 2.0 28 88 18 95 01/01/20 21:00 89 101/59 01/01/20 21:00 Room Air 01/01/20 20:24 92 01/01/20 20:00 88 01/01/20 20:00 97.5 91 22 109/67 (81) 100 01/01/20 19:45 92 20 95 Room Air 21 90 20 93 01/01/20 19:43 93 Room Air 21 Intake and Output 01/01/20 01/02/20 19:00 07:00 Intake Total 750 ml 120 ml Balance 750 ml 120 ml Intake Oral 360 ml 120 ml IV Total 390 ml # Voids 2 4 General Appearance: no acute distress HEENT: normocephalic Respiratory/Chest: chest wall non-tender Cardiovascular: normal peripheral pulses Abdomen: normal bowel sounds Microbiology Date/Time Source Procedure Growth Status 01/01/20 06:00 Sputum Gram Stain - Final Resulted 01/01/20 06:00 Sputum Sputum Culture Pending Resulted Laboratory Tests 01/02/20 08:30: White Blood Count 6.6, Red Blood Count 4.07L, Hemoglobin 11.1L, Hematocrit 34.3L , Mean Corpuscular Volume 84, Mean Corpuscular Hemoglobin 27.3, Mean Corpuscular Hemoglobin Concent 32.4, Red Cell Distribution Width 13.2, Platelet Count 248, Mean Platelet Volume 5.9L, Neutrophils (%) (Auto) 76.8H, Lymphocytes (%) (Auto) 12.7L, Monocytes (%) (Auto) 9.5, Eosinophils (%) (Auto) 0.1, Basophils (%) (Auto) 0.9, Sodium Level 138, Potassium Level 4.5, Chloride Level 100, Carbon Dioxide Level 25, Anion Gap 13, Blood Urea Nitrogen 26H, Creatinine 1.1, Estimat Glomerular Filtration Rate 47.2, Glucose Level 162H, Uric Acid 9.0H , Calcium Level 9.6, Phosphorus Level 2.7, Magnesium Level 1.8, Total Bilirubin 0.6, Aspartate Amino Transf (AST/SGOT) 24, Alanine Aminotransferase (ALT/SGPT) 16, Alkaline Phosphatase 91, Pro-B-Type Natriuretic Peptide 32521C, Total Protein 6.7, Albumin 3.0L, Globulin 3.7, Albumin/Globulin Ratio 0.8L Current Medications Medications (Trade) Dose Ordered Sig/Meera Route PRN Reason Start Time Stop Time Status Last Admin Dose Admin Acetaminophen (Tylenol) 650 mg Q4H PRN ORAL Mild Pain/Temp > 100.5 12/29/19 22:15 01/28/20 22:14 Albuterol/ Ipratropium (Albuterol/ Ipratropium) 3 ml Q4HRT HHN 12/29/19 23:00 01/03/20 22:59 01/02/20 15:08 Apixaban (Eliquis) 2.5 mg Q12H ORAL 12/29/19 23:00 01/28/20 22:59 01/02/20 11:32 Aspirin (ASA) 81 mg DAILY ORAL 12/30/19 09:00 01/29/20 08:59 01/02/20 09:21 Azithromycin (Zithromax) 500 mg Q24H ORAL 01/02/20 16:00 01/05/20 15:59 01/02/20 16:50 Buspirone HCl (Buspar) 15 mg BID ORAL 12/30/19 09:00 01/29/20 08:59 01/02/20 17:24 Ceftriaxone Sodium 1 gm/ Dextrose 55 ml @ 110 mls/hr Q24H IVPB 12/30/19 19:00 01/06/20 18:59 01/01/20 18:13 Docusate Sodium (Colace) 100 mg TWICE A DAY ORAL 12/30/19 09:00 01/29/20 08:59 01/02/20 17:24 Guaifenesin/ Dextromethorphan (Robitussin DM Syrup) 10 ml Q4H PRN ORAL For Cough 12/29/19 22:15 01/28/20 22:14 Iron Sucrose 100 mg/Sodium Chloride 60 ml @ 240 mls/hr BEDTIME IV 01/01/20 21:00 01/05/20 21:14 01/01/20 20:31 Magnesium Hydroxide (Mom) 30 ml DAILYPRN PRN ORAL Constipation 1ST CHOICE 12/29/19 22:15 01/28/20 22:14 Metoprolol Tartrate (Lopressor) 25 mg Q12HR ORAL 12/31/19 09:00 01/30/20 08:59 01/02/20 09:21 Pantoprazole (Protonix) 40 mg EVERY 12 HOURS ORAL 12/30/19 21:00 01/29/20 20:59 01/02/20 09:21 Polyethylene Glycol (Miralax) 17 gm DAILY PRN ORAL Constipation 12/29/19:15 01/28/20 22:14 Temazepam (Restoril) 15 mg HSPRN PRN ORAL Insomnia 12/29/19 22:30 01/05/20 22:29 Oliver Porras MD Jan 02, 2020 19:03
--- NOTE | 2020-01-02 19:18 | NUR ---
HAND-OFF: Report given to Elvira.
[2020-01-02 20:00] VITALS: BP 135/80
--- NOTE | 2020-01-02 20:00 | NUR ---
NURSE NOTES: RECEIVED PATIENT LYING IN BED, AWAKE, ORIENTED X3, VERBALLY RESPONSIVE, DENIES PAIN. NO SIGNS AND SYMPTOMS OF ACUTE CARDIO RESPIRATORY DISTRESS/SHORTNESS OF BREATH, TRACE EDEMA NOTED TO BILATERAL LOWER EXTREMITIES, ELEVATED EACH EXTREMITY ON PILLOW LENGTHWISE WITH HEELS FLOATING. CONTINUE ON PRESIDENT EDUCATIONAL INSTITUTION. ABDOMEN SOFT/NON DISTENDED/NON TENDER/AUDIBLE BOWEL SOUNDS, NO N/V/D. SIDE RAILS UP X3/BED IN LOWEST POSITION FOR SAFETY, ENCOURAGED PATIENT TO UTILIZE CALL LIGHT FOR ASSISTANCE, VERBALIZED UNDERSTANDING. CONTINUE WITH CURRENT PLAN OF CARE. NAD.
[2020-01-02] MEDS: cefTRIAXone 1 GM in D5W 55 ML IVPB SCH (20:29)
[2020-01-02] MEDS: Iron Sucrose 100 MG in NS 55 ML IV SCH (20:30)
[2020-01-03] VITALS (7 sets, daily range): BP systolic 106–139; BP diastolic 64–74
--- NOTE | 2020-01-03 00:30 | Progress Note ---
DATE: 01/02/2020 CARDIOLOGY PROGRESS NOTE SUBJECTIVE: Still with cough, congestion, and shortness of breath. Remains on antimicrobials. Diuretic therapy advanced. OBJECTIVE: VITAL SIGNS: Blood pressure 102/56, heart rate 76, respiratory rate 19, and afebrile. Monitored rhythm, atrial fibrillation. LUNGS: Bilateral breath sounds, rhonchi, and few rales. CARDIAC: Irregularly irregular rhythm. Normal S1 and S2 with a 1/6 systolic apical murmur. ABDOMEN: Soft. EXTREMITIES: No edema. LABORATORY DATA: White count 6.6 and hemoglobin 11.1. Potassium 4.5, BUN 26, and creatinine 1.1. Pro-natriuretic peptide has increased over 16,000. IMPRESSION: 1. Acute on chronic diastolic congestive heart failure. 2. Community-acquired pneumonia. 3. Paroxysmal bronchospasm. 4. Atrial fibrillation, now rate controlled, following digitalization. PLAN: 1. Continue diuresis. 2. Maintain beta-aaron and digitalis. 3. Trend natriuretic peptide assay. 4. Antimicrobials. 5. Respiratory hygiene and bronchodilators. 6. Cardioembolic prophylaxis with apixaban. Jarrett Neal M.D. DR: YOLIE JOB#: [id number] CC:
[2020-01-03] MEDS: Albuterol/Ipratropium 3ml neb HHN SCH ×5 (03:40→19:04)
--- NOTE | 2020-01-03 07:00 | NUR ---
NURSE NOTES: RESTED WELL, NO SIGNIFICANT CHANGE OF CONDITION NOTED THROUGHOUT THE NIGHT. SAFETY MAINTAINED. NAD.
--- NOTE | 2020-01-03 07:28 | NUR ---
HAND-OFF: Report given to JOCELYNE SEGURA.
--- NOTE | 2020-01-03 07:35 | NUR ---
NURSE NOTES: Received pt from Elvira. Pt is A/A/OX2, able to make things known. on O2 2L via NC. IV access patent and intact. no c/o pain/discomfort noted. keep bed in the lowest position, locked and alarm engaged. call light within easy reach. will continue to monitor.
[2020-01-03] MEDS: BusPIRone 5mg Tab ORAL SCH ×2 (08:59→17:17)
[2020-01-03] MEDS: Aspirin Baby 81mg ORAL SCH (09:03)
[2020-01-03] MEDS: Docusate 100mg cap ORAL SCH ×2 (09:03→17:17)
[2020-01-03] MEDS: Digoxin 0.125mg tab ORAL SCH (09:04)
--- NOTE | 2020-01-03 10:52 | Nephrology Progress Note ---
Assessment/Plan Problem List: (1) Electrolyte imbalance (2) Anemia (3) Obesity (BMI 30.0-34.9) (4) DMII (diabetes mellitus, type 2) Assessment Admitted with respiratory failure and Hypoxia Pneumonia Low Na and High K ? due to aldactone Azotemia / Dehydration CHF , acute on chronic Anemia- Low Irron Obesity Dementia DM Plan Plan: UA Mag supplement IV Iron Aim to correct lytes monitor renal parameters keep BP and BS and HR in check Pulm and cardiac tune up Subjective ROS Limited/Unobtainable: No Constitutional: Reports: malaise, weakness Objective Objective Last 24 Hour Vital Signs Date Time Temp Pulse Resp B/P (MAP) Pulse Ox O2 Delivery O2 Flow Rate FiO2 01/03/20 09:42 78 01/03/20 09:40 Room Air 01/03/20 09:04 80 01/03/20 09:03 80 118/69 01/03/20 08:00 96.8 80 19 118/69 (85) 98 01/03/20 07:42 93 Nasal Cannula 2.0 28 01/03/20 07:42 65 20 98 Nasal Cannula 2.0 28 61 20 93 01/03/20 04:00 97.3 73 18 139/72 (94) 95 01/03/20 04:00 87 01/03/20 00:00 97.8 72 17 123/67 (85) 95 01/03/20 00:00 81 01/02/20 23:25 87 16 100 Nasal Cannula 2.0 28 86 16 99 01/02/20 21:29 86 115/69 01/02/20 21:00 Room Air 01/02/20 20:00 80 01/02/20 20:00 97.1 78 19 135/80 (98) 96 01/02/20 19:46 96 Nasal Cannula 2.0 28 01/02/20 16:32 96 01/02/20 16:00 97.7 78 19 102/56 (71) 100 01/02/20 15:17 77 16 98 Room Air 21 76 15 97 01/02/20 12:00 97.7 85 20 135/83 (100) 97 01/02/20 11:48 92 01/02/20 11:15 91 18 99 Nasal Cannula 2.0 28 83 16 98 Intake and Output 01/02/20 01/03/20 19:00 07:00 Intake Total 120 ml 415 ml Balance 120 ml 415 ml Intake Oral 120 ml 300 ml IV Total 115 ml # Voids 3 4 Current Medications Medications (Trade) Dose Ordered Sig/Meera Route PRN Reason Start Time Stop Time Status Last Admin Dose Admin Acetaminophen (Tylenol) 650 mg Q4H PRN ORAL Mild Pain/Temp > 100.5 12/29/19 22:15 01/28/20 22:14 Albuterol/ Ipratropium (Albuterol/ Ipratropium) 3 ml Q4HRT HHN 12/29/19 23:00 01/03/20 22:59 01/03/20 07:40 Apixaban (Eliquis) 2.5 mg Q12H ORAL 12/29/19 23:00 01/28/20 22:59 01/02/20 23:59 Aspirin (ASA) 81 mg DAILY ORAL 12/30/19 09:00 01/29/20 08:59 01/03/20 09:03 Azithromycin (Zithromax) 500 mg Q24H ORAL 01/02/20 16:00 01/05/20 15:59 01/02/20 16:50 Buspirone HCl (Buspar) 15 mg BID ORAL 12/30/19 09:00 01/29/20 08:59 01/03/20 08:59 Ceftriaxone Sodium 1 gm/ Dextrose 55 ml @ 110 mls/hr Q24H IVPB 12/30/19 19:00 01/06/20 18:59 01/02/20 20:29 Digoxin (Lanoxin) 0.125 mg DAILY ORAL 01/03/20 09:00 02/02/20 08:59 01/03/20 09:04 Docusate Sodium (Colace) 100 mg TWICE A DAY ORAL 12/30/19 09:00 01/29/20 08:59 01/03/20 09:03 Furosemide (Lasix) 40 mg DAILY IV 01/03/20 09:00 02/02/20 08:59 01/03/20 09:39 Guaifenesin/ Dextromethorphan (Robitussin DM Syrup) 10 ml Q4H PRN ORAL For Cough 12/29/19 22:15 01/28/20 22:14 Iron Sucrose 100 mg/Sodium Chloride 60 ml @ 240 mls/hr BEDTIME IV 01/01/20 21:00 01/05/20 21:14 01/02/20 20:30 Magnesium Hydroxide (Mom) 30 ml DAILYPRN PRN ORAL Constipation 1ST CHOICE 12/29/19 22:15 01/28/20 22:14 Metoprolol Tartrate (Lopressor) 25 mg Q12HR ORAL 12/31/19 09:00 01/30/20 08:59 01/03/20 09:03 Pantoprazole (Protonix) 40 mg EVERY 12 HOURS ORAL 12/30/19 21:00 01/29/20 20:59 01/03/20 08:59 Polyethylene Glycol (Miralax) 17 gm DAILY PRN ORAL Constipation 12/29/19 22:15 01/28/20 22:14 Temazepam (Restoril) 15 mg HSPRN PRN ORAL Insomnia 12/29/19 22:30 01/05/20 22:29 Height (Feet): 5 Height (Inches): 1.00 Weight (Pounds): 178 General Appearance: no apparent distress, agitated Cardiovascular: normal rate Respiratory/Chest: decreased breath sounds Abdomen: distended Objective no change Nakul Matta MD Jan 03, 2020 10:52
[2020-01-03] MEDS: Eliquis 2.5mg tablet ORAL SCH ×2 (11:14→22:35)
--- NOTE | 2020-01-03 12:31 | Pulmonology Progress Note ---
Assessment/Plan Assessment/Plan IMPRESSION: 1. Acute bronchitis versus pneumonia. 2. CVA. 3. Dementia. 4. Paroxysmal atrial fibrillation. 5. Hypertension. DISCUSSION: 1. Continue present care 2. Agree with broad-spectrum antibiotics. 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 4. Use oxygen prn. Oliver Porras M.D. Subjective Interval Events: None new Constitutional: Reports: no symptoms HEENT: Repors: no symptoms Respiratory: Reports: no symptoms Cardiovascular: Reports: no symptoms Allergies: Coded Allergies: No Known Allergies (Unverified , 12/29/19) Objective Last 24 Hour Vital Signs Date Time Temp Pulse Resp B/P (MAP) Pulse Ox O2 Delivery O2 Flow Rate FiO2 01/03/20 11:26 69 20 99 Nasal Cannula 2.0 28 64 20 96 01/03/20 09:42 78 01/03/20 09:40 Room Air 01/03/20 09:04 80 01/03/20 09:03 80 118/69 01/03/20 08:00 96.8 80 19 118/69 (85) 98 01/03/20 07:42 93 Nasal Cannula 2.0 28 01/03/20 07:42 65 20 98 Nasal Cannula 2.0 28 61 20 93 01/03/20 04:00 97.3 73 18 139/72 (94) 95 01/03/20 04:00 87 01/03/20 00:00 97.8 72 17 123/67 (85) 95 01/03/20 00:00 81 01/02/20 23:25 87 16 100 Nasal Cannula 2.0 28 86 16 99 01/02/20 21:29 86 115/69 01/02/20 21:00 Room Air 01/02/20 20:00 80 01/02/20 20:00 97.1 78 19 135/80 (98) 96 01/02/20 19:46 96 Nasal Cannula 2.0 28 01/02/20 16:32 96 01/02/20 16:00 97.7 78 19 102/56 (71) 100 01/02/20 15:17 77 16 98 Room Air 21 76 15 97 Intake and Output 2/21/20 2/22/20 19:00 07:00 Intake Total 120 ml 415 ml Balance 120 ml 415 ml Intake Oral 120 ml 300 ml IV Total 115 ml # Voids 3 4 General Appearance: no acute distress HEENT: normocephalic Respiratory/Chest: chest wall non-tender, lungs clear Cardiovascular: normal peripheral pulses, normal rate Abdomen: normal bowel sounds Microbiology Date/Time Source Procedure Growth Status 01/01/20 06:00 Sputum Gram Stain - Final Resulted 01/01/20 06:00 Sputum Culture - Preliminary Staphylococcus Aureus Galina Albicans Resulted Current Medications Medications (Trade) Dose Ordered Sig/Meera Route PRN Reason Start Time Stop Time Status Last Admin Dose Admin Acetaminophen (Tylenol) 650 mg Q4H PRN ORAL Mild Pain/Temp > 100.5 12/29/19 22:15 01/28/20 22:14 Albuterol/ Ipratropium (Albuterol/ Ipratropium) 3 ml Q4HRT HHN 12/29/19 23:00 01/03/20 22:59 01/03/20 11:25 Apixaban (Eliquis) 2.5 mg Q12H ORAL 12/29/19 23:00 01/28/20 22:59 01/03/20 11:14 Aspirin (ASA) 81 mg DAILY ORAL 12/30/19 09:00 01/29/20 08:59 01/03/20 09:03 Azithromycin (Zithromax) 500 mg Q24H ORAL 01/02/20 16:00 01/05/20 15:59 01/02/20 16:50 Buspirone HCl (Buspar) 15 mg BID ORAL 12/30/19 09:00 01/29/20 08:59 01/03/20 08:59 Ceftriaxone Sodium 1 gm/ Dextrose 55 ml @ 110 mls/hr Q24H IVPB 12/30/19 19:00 01/06/20 18:59 01/02/20 20:29 Digoxin (Lanoxin) 0.125 mg DAILY ORAL 01/03/20 09:00 02/02/20 08:59 01/03/20 09:04 Docusate Sodium (Colace) 100 mg TWICE A DAY ORAL 12/30/19 09:00 01/29/20 08:59 01/03/20 09:03 Furosemide (Lasix) 40 mg DAILY IV 01/03/20 09:00 02/02/20 08:59 01/03/20 09:39 Guaifenesin/ Dextromethorphan (Robitussin DM Syrup) 10 ml Q4H PRN ORAL For Cough 12/29/19 22:15 01/28/20 22:14 Iron Sucrose 100 mg/Sodium Chloride 60 ml @ 240 mls/hr BEDTIME IV 01/01/20 21:00 01/05/20 21:14 01/02/20 20:30 Magnesium Hydroxide (Mom) 30 ml DAILYPRN PRN ORAL Constipation 1ST CHOICE 12/29/19 22:15 01/28/20 22:14 Metoprolol Tartrate (Lopressor) 25 mg Q12HR ORAL 12/31/19 09:00 01/30/20 08:59 01/03/20 09:03 Pantoprazole (Protonix) 40 mg EVERY 12 HOURS ORAL 12/30/19 21:00 01/29/20 20:59 01/03/20 08:59 Polyethylene Glycol (Miralax) 17 gm DAILY PRN ORAL Constipation 12/29/19 22:15 01/28/20 22:14 Temazepam (Restoril) 15 mg HSPRN PRN ORAL Insomnia 12/29/19 22:30 01/05/20 22:29 Oliver Porras MD Jan 03, 2020 12:31
--- NOTE | 2020-01-03 14:10 | NUR ---
P.T. NOTES S/P: APPROACHED PATIENT IN THE PM. PATIENT FOUND LYING IN BED, IN A SEMI-VACA'S POSITION I UPON ARRIVAL. PATIENT DECLINED P.T. TX. EXPLAINED THE BENEFITS OF P.T. TX. AND THE CONSEQUENCES OF LYING IN BED FOR A PROLONGED PERIOD OF TIME, BUT PATIENT CONT'D TO REFUSE P.T. SERVICES TODAY. RN AWARE OF PATIENT'S STATUS. WILL F/U NEXT TX. TIME AND CONT WITH P.T. PLAN. RSABADO.
[2020-01-03] MEDS ORDERED: Tubing IV Secondary IV ONE (15:21)
[2020-01-03] MEDS ORDERED: Vancomycin 1.25gm/NS Premix IVPB ONE (16:00)
--- NOTE | 2020-01-03 19:20 | NUR ---
Received pt. awake, quite anxious but denies any discomfort at this time. V/SS. Monitor shows sinus rhythm on the monitor. Bed at its lowest and locked. Continue to monitor pt.
--- NOTE | 2020-01-03 19:22 | NUR ---
HAND-OFF: Report given to Jennifer.
[2020-01-03] MEDS ORDERED: Lisinopril 10mg tab ORAL SCH (20:15)
[2020-01-03] MEDS: Iron Sucrose 100 MG in NS 55 ML IV SCH (20:43)
--- NOTE | 2020-01-03 21:00 | Progress Note ---
DATE: 01/03/2020 CARDIOLOGY PROGRESS NOTE SUBJECTIVE: Still with congestion and shortness of breath. Sputum is positive for Staph aureus. Final culture pending. OBJECTIVE: VITAL SIGNS: Blood pressure 118/69, heart rate 80, respiratory rate 20. No fevers. Monitor atrial fibrillation. LUNGS: Bilateral breath sounds. Rhonchi. CARDIAC: Irregularly irregular rhythm. Normal S1 and S2. A 1/6 systolic apical murmur. ABDOMEN: Soft. EXTREMITIES: No edema. LABORATORY DATA: Oxygen saturation on 2 liters 93% to 98%. Echocardiogram revealed depressed ejection fraction of 30% with global hypokinesis and mild degenerative valve disease with regurgitation. IMPRESSION: 1. Staph aureus bronchitis and possible pneumonia. 2. Paroxysmal atrial fibrillation, now rate controlled. 3. Hypertensive heart disease. 4. Acute on chronic systolic and diastolic congestive heart failure. PLAN: 1. Antimicrobials to include vancomycin. 2. Trend natriuretic peptide assay. 3. Add KHADRA inhibitor therapy. 4. Continue beta-aaron and digitalis for rate control. 5. Maintain furosemide intravenous for additional diuresis. 6. Continue cardiac monitoring. Jarrett Neal M.D. DR: CHATO JOB#: [id number] CC:
[2020-01-04] VITALS: BP 118/74
--- NOTE | 2020-01-04 01:45 | NUR ---
HAND-OFF: Report given to nurse Dolly CASTAÑEDA for follow up of care.Endorsed plan of care..
--- NOTE | 2020-01-04 01:45 | NUR ---
NURSE NOTES: Received report from GARRY Rodriguez. Patient is awake, lying in semi juares's; resting comfortably. A/Ox4. Primarily [place] speaking. Denies pain at this time. No signs of acute distress noted. Checked IV site and flushed. No erythema, bleeding or infiltration noted. Bed at lowest position, brakes on, siderailsx3. Call light within reach. Will continue to monitor.
--- NOTE | 2020-01-04 03:05 | NUR ---
NURSE NOTES: Microbiology called and spoke with Ruslan, patient's sputum result (+) MRSA. Charge nurse made aware. Will inform Dr. Burgess in AM. Addendum: 01/04/20 at 0528 by Dolly Quick RN Placed on contact precaution.
[2020-01-04 04:00] VITALS: BP 115/80
--- NOTE | 2020-01-04 07:15 | NUR ---
HAND-OFF: Report given to GARRY Lazcano. Plan of care endorsed. Notified Dr. Burgess of patient's sputum result (+) MRSA.
--- NOTE | 2020-01-04 07:40 | NUR ---
NURSE NOTES: Received report from GARRY Alberto. Patient in bed resting, no active s/s cardiac, respiratory distress noticed at this time. Patient AOx 2-3, on room air, IV on left FA 22G, asymptomatic, patent, intact. A. fib with HR 81. Bed in lowest position, side rails upx3, bed alarm on, call light within reach. Will continue to monitor.
[2020-01-04 08:00] VITALS: BP 130/60
[2020-01-04 08:50] LABS: BASOPHILS % (AUTO) 1.7 % (0.0-2.0); EOSINOPHILS % (AUTO) 1.9 % (0.0-3.0); HEMATOCRIT 36.9 % (37.0-47.0); HEMOGLOBIN 12.1 G/DL (12.0-16.0); LYMPHOCYTES % (AUTO) 14.6 % (20.0-45.0); MEAN CORPUSCULAR VOLUME 85 FL (80-99); MONOCYTES % (AUTO) 10.1 % (1.0-10.0); NEUTROPHILS % (AUTO) 71.8 % (45.0-75.0); PLATELET COUNT 323 K/UL (150-450); RED BLOOD COUNT 4.34 M/UL (4.20-5.40); RED CELL DISTRIBUTION WIDTH 13.5 % (11.6-14.8); WHITE BLOOD COUNT 8.5 K/UL (4.8-10.8)
[2020-01-04] MEDS: Digoxin 0.125mg tab ORAL SCH (09:08)
[2020-01-04] MEDS: BusPIRone 5mg Tab ORAL SCH ×2 (09:08→17:31)
[2020-01-04] MEDS: Docusate 100mg cap ORAL SCH ×2 (09:08→17:31)
[2020-01-04] MEDS: Lisinopril 10mg tab ORAL SCH (09:09)
[2020-01-04 09:10] LABS: ALANINE AMINOTRANSFERASE 12 U/L (12-78); ALBUMIN 3.1 G/DL (3.4-5.0); ALBUMIN/GLOBULIN RATIO 0.8 (1.0-2.7); ALKALINE PHOSPHATASE 84 U/L (46-116); ANION GAP 8 mmol/L (5-15); ASPARTATE AMINO TRANSFERASE 22 U/L (15-37); BILIRUBIN,TOTAL 0.7 MG/DL (0.2-1.0); BLOOD UREA NITROGEN 23 mg/dL (7-18); CALCIUM 9.4 MG/DL (8.5-10.1); CARBON DIOXIDE 30 MMOL/L (21-32); CHLORIDE 98 MMOL/L (98-107); CREATININE 0.9 MG/DL (0.55-1.30); PHOSPHORUS 2.7 MG/DL (2.5-4.9); SODIUM 136 MMOL/L (136-145)
--- NOTE | 2020-01-04 09:38 | Infectious Diseases Prog Note ---
Assessment/Plan Assessment/Plan A 1.MRSA pneumonia, bronchitis 2. Diabetes mellitus 3. Hypertension 4. Atrial fibrillation 5. CVA 6. Dementia P 1. continue IV Vancomycin 2. will follow up cultures Subjective ROS Limited/Unobtainable: No Constitutional: Reports: other - decreased appetite Respiratory: Reports: no symptoms Cardiovascular: Reports: no symptoms Gastrointestinal/Abdominal: Reports: no symptoms Genitourinary: Reports: no symptoms Allergies: Coded Allergies: No Known Allergies (Unverified , 12/29/19) Objective Vital Signs Last 24 Hour Vital Signs Date Time Temp Pulse Resp B/P (MAP) Pulse Ox O2 Delivery O2 Flow Rate FiO2 01/04/20 09:09 130/60 01/04/20 09:08 79 01/04/20 09:08 79 130/60 01/04/20 08:00 97.5 79 20 130/60 (83) 99 01/04/20 04:00 97.6 83 20 115/80 (92) 96 01/04/20 04:00 81 01/04/20 00:00 98.0 80 20 118/74 (89) 98 01/04/20 00:00 73 01/03/20 21:40 106/65 (79) 01/03/20 21:00 Room Air 01/03/20 20:42 82 123/64 01/03/20 20:15 106/65 01/03/20 20:00 93 01/03/20 20:00 97.9 82 20 123/64 (83) 97 01/03/20 19:14 89 20 99 Room Air 21 01/03/20 19:06 89 01/03/20 19:04 81 20 93 Room Air 21 01/03/20 19:04 93 Room Air 21 01/03/20 16:00 98.6 70 20 115/74 (88) 96 01/03/20 14:52 81 20 100 Nasal Cannula 2.0 28 80 20 98 01/03/20 13:16 73 01/03/20 12:00 98.1 65 20 123/69 (87) 98 01/03/20 11:26 69 20 99 Nasal Cannula 2.0 28 64 20 96 01/03/20 09:42 78 01/03/20 09:40 Room Air Height (Feet): 5 Height (Inches): 1.00 Weight (Pounds): 178 General Appearance: no acute distress HEENT: mucous membranes moist Respiratory/Chest: lungs clear, other - oxygen by nasal cannula Cardiovascular: normal rate Abdomen: soft, non tender Extremities: no edema Neurologic/Psychiatric: alert, oriented x 3, responsive Laboratory Tests Test 01/04/20 07:46 White Blood Count 8.5 K/UL (4.8-10.8) Red Blood Count 4.34 M/UL (4.20-5.40) Hemoglobin 12.1 G/DL (12.0-16.0) Hematocrit 36.9 % (37.0-47.0) L Mean Corpuscular Volume 85 FL (80-99) Mean Corpuscular Hemoglobin 27.9 PG (27.0-31.0) Mean Corpuscular Hemoglobin Concent 32.8 G/DL (32.0-36.0) Red Cell Distribution Width 13.5 % (11.6-14.8) Platelet Count 323 K/UL (150-450) Mean Platelet Volume 5.2 FL (6.5-10.1) L Neutrophils (%) (Auto) 71.8 % (45.0-75.0) Lymphocytes (%) (Auto) 14.6 % (20.0-45.0) L Monocytes (%) (Auto) 10.1 % (1.0-10.0) H Eosinophils (%) (Auto) 1.9 % (0.0-3.0) Basophils (%) (Auto) 1.7 % (0.0-2.0) Sodium Level 136 MMOL/L (136-145) Potassium Level 4.0 MMOL/L (3.5-5.1) Chloride Level 98 MMOL/L (98-107) Carbon Dioxide Level 30 MMOL/L (21-32) Anion Gap 8 mmol/L (5-15) Blood Urea Nitrogen 23 mg/dL (7-18) H Creatinine 0.9 MG/DL (0.55-1.30) Estimat Glomerular Filtration Rate 59.5 mL/min (>60) Glucose Level 111 MG/DL (74-106) H Uric Acid 8.6 MG/DL (2.6-7.2) H Calcium Level 9.4 MG/DL (8.5-10.1) Phosphorus Level 2.7 MG/DL (2.5-4.9) Magnesium Level 1.8 MG/DL (1.8-2.4) Total Bilirubin 0.7 MG/DL (0.2-1.0) Aspartate Amino Transf (AST/SGOT) 22 U/L (15-37) Alanine Aminotransferase (ALT/SGPT) 12 U/L (12-78) Alkaline Phosphatase 84 U/L (46-116) C-Reactive Protein, Quantitative 4.1 mg/dL (0.00-0.90) H Pro-B-Type Natriuretic Peptide 9993 pg/mL (0-125) H Total Protein 6.9 G/DL (6.4-8.2) Albumin 3.1 G/DL (3.4-5.0) L Globulin 3.8 g/dL Albumin/Globulin Ratio 0.8 (1.0-2.7) L Current Medications Medications (Trade) Dose Ordered Sig/Meera Route PRN Reason Start Time Stop Time Status Last Admin Dose Admin Acetaminophen (Tylenol) 650 mg Q4H PRN ORAL Mild Pain/Temp > 100.5 12/29/19 22:15 01/28/20 22:14 Apixaban (Eliquis) 2.5 mg Q12H ORAL 12/29/19 23:00 01/28/20 22:59 01/03/20 22:35 Buspirone HCl (Buspar) 15 mg BID ORAL 12/30/19 09:00 01/29/20 08:59 01/04/20 09:08 Digoxin (Lanoxin) 0.125 mg DAILY ORAL 01/03/20 09:00 02/02/20 08:59 01/04/20 09:08 Docusate Sodium (Colace) 100 mg TWICE A DAY ORAL 12/30/19 09:00 01/29/20 08:59 01/04/20 09:08 Furosemide (Lasix) 40 mg DAILY IV 01/03/20 09:00 02/02/20 08:59 01/04/20 09:08 Guaifenesin/ Dextromethorphan (Robitussin DM Syrup) 10 ml Q4H PRN ORAL For Cough 12/29/19 22:15 01/28/20 22:14 Iron Sucrose 100 mg/Sodium Chloride 60 ml @ 240 mls/hr BEDTIME IV 01/01/20 21:00 01/05/20 21:14 01/03/20 20:43 Lisinopril (ZestriL) 10 mg DAILY ORAL 01/04/20 09:00 02/03/20 08:59 01/04/20 09:09 Magnesium Hydroxide (Mom) 30 ml DAILYPRN PRN ORAL Constipation 1ST CHOICE 12/29/19 22:15 01/28/20 22:14 Metoprolol Tartrate (Lopressor) 25 mg Q12HR ORAL 12/31/19 09:00 01/30/20 08:59 01/04/20 09:08 Pantoprazole (Protonix) 40 mg EVERY 12 HOURS ORAL 12/30/19 21:00 01/29/20 20:59 01/04/20 09:08 Polyethylene Glycol (Miralax) 17 gm DAILY PRN ORAL Constipation 12/29/19 22:15 01/28/20 22:14 Temazepam (Restoril) 15 mg HSPRN PRN ORAL Insomnia 12/29/19 22:30 01/05/20 22:29 Vancomycin HCl (Vanco rx to dose) 1 ea DAILY PRN MISC rx protocol 01/03/20 14:45 02/02/20 14:44 Vancomycin HCl 750 mg/Sodium Chloride 275 ml @ 183.333 mls/hr Q24H IVPB 01/04/20 16:00 01/09/20 15:59 Bhavik Fortune MD Jan 04, 2020 09:38
[2020-01-04] MEDS: Eliquis 2.5mg tablet ORAL SCH ×2 (11:35→23:49)
[2020-01-04 12:00] VITALS: BP 111/63
--- NOTE | 2020-01-04 12:03 | Nephrology Progress Note ---
Assessment/Plan Problem List: (1) Electrolyte imbalance (2) Anemia (3) Obesity (BMI 30.0-34.9) (4) DMII (diabetes mellitus, type 2) Assessment Admitted with respiratory failure and Hypoxia Pneumonia Low Na and High K ? due to aldactone Azotemia / Dehydration CHF , acute on chronic Anemia- Low Irron Obesity Dementia DM Plan Plan: UA Mag supplement IV Iron Aim to correct lytes monitor renal parameters keep BP and BS and HR in check Pulm and cardiac tune up Subjective ROS Limited/Unobtainable: No Constitutional: Reports: malaise Objective Objective Last 24 Hour Vital Signs Date Time Temp Pulse Resp B/P (MAP) Pulse Ox O2 Delivery O2 Flow Rate FiO2 01/04/20 09:09 130/60 01/04/20 09:08 79 01/04/20 09:08 79 130/60 01/04/20 09:00 Room Air 01/04/20 08:00 97.5 79 20 130/60 (83) 99 01/04/20 08:00 71 01/04/20 04:00 97.6 83 20 115/80 (92) 96 01/04/20 04:00 81 01/04/20 00:00 98.0 80 20 118/74 (89) 98 01/04/20 00:00 73 01/03/20 21:40 106/65 (79) 01/03/20 21:00 Room Air 01/03/20 20:42 82 123/64 01/03/20 20:15 106/65 01/03/20 20:00 93 01/03/20 20:00 97.9 82 20 123/64 (83) 97 01/03/20 19:14 89 20 99 Room Air 21 01/03/20 19:06 89 01/03/20 19:04 81 20 93 Room Air 21 01/03/20 19:04 93 Room Air 21 01/03/20 16:00 98.6 70 20 115/74 (88) 96 01/03/20 14:52 81 20 100 Nasal Cannula 2.0 28 80 20 98 01/03/20 13:16 73 Intake and Output 01/03/20 01/04/20 19:00 07:00 Intake Total 140 ml Output Total 1800 ml Balance -1660 ml Intake Oral 140 ml Output Urine Total 1800 ml # Voids 3 2 Laboratory Tests 01/04/20 07:46: White Blood Count 8.5, Red Blood Count 4.34, Hemoglobin 12.1, Hematocrit 36.9L, Mean Corpuscular Volume 85, Mean Corpuscular Hemoglobin 27.9, Mean Corpuscular Hemoglobin Concent 32.8, Red Cell Distribution Width 13.5, Platelet Count 323, Mean Platelet Volume 5.2L, Neutrophils (%) (Auto) 71.8, Lymphocytes (%) (Auto) 14.6L, Monocytes (%) (Auto) 10.1H, Eosinophils (%) (Auto) 1.9, Basophils (%) ( Auto) 1.7, Sodium Level 136, Potassium Level 4.0, Chloride Level 98, Carbon Dioxide Level 30, Anion Gap 8, Blood Urea Nitrogen 23H, Creatinine 0.9, Estimat Glomerular Filtration Rate 59.5, Glucose Level 111H, Uric Acid 8.6H, Calcium Level 9.4, Phosphorus Level 2.7, Magnesium Level 1.8, Total Bilirubin 0.7, Aspartate Amino Transf (AST/SGOT) 22, Alanine Aminotransferase (ALT/SGPT) 12, Alkaline Phosphatase 84, C-Reactive Protein, Quantitative 4.1H, Pro-B-Type Natriuretic Peptide 9993H, Total Protein 6.9, Albumin 3.1L, Globulin 3.8, Albumin/Globulin Ratio 0.8L Height (Feet): 5 Height (Inches): 1.00 Weight (Pounds): 178 General Appearance: no apparent distress Objective no change Nakul Matta MD Jan 04, 2020 12:03
[2020-01-04] MEDS ORDERED: Tubing IV Secondary IV ONE (14:11)
--- NOTE | 2020-01-04 15:46 | Pulmonology Progress Note ---
Assessment/Plan Assessment/Plan IMPRESSION: 1. Acute bronchitis versus pneumonia. 2. CVA. 3. Dementia. 4. Paroxysmal atrial fibrillation. 5. Hypertension. DISCUSSION: 1. Continue present care 2. Agree with broad-spectrum antibiotics. 3. I will follow as bee raiser. 4. Use oxygen prn. Oliver Porras M.D. Subjective Interval Events: None new Constitutional: Reports: no symptoms HEENT: Repors: no symptoms Respiratory: Reports: no symptoms Gastrointestinal/Abdominal: Reports: no symptoms Allergies: Coded Allergies: No Known Allergies (Unverified , 12/29/19) Objective Last 24 Hour Vital Signs Date Time Temp Pulse Resp B/P (MAP) Pulse Ox O2 Delivery O2 Flow Rate FiO2 01/04/20 12:00 70 01/04/20 12:00 97.4 75 20 111/63 (79) 100 01/04/20 09:09 130/60 01/04/20 09:08 79 01/04/20 09:08 79 130/60 01/04/20 09:00 Room Air 01/04/20 08:00 97.5 79 20 130/60 (83) 99 01/04/20 08:00 71 01/04/20 04:00 97.6 83 20 115/80 (92) 96 01/04/20 04:00 81 01/04/20 00:00 98.0 80 20 118/74 (89) 98 01/04/20 00:00 73 01/03/20 21:40 106/65 (79) 01/03/20 21:00 Room Air 01/03/20 20:42 82 123/64 01/03/20 20:15 106/65 01/03/20 20:00 93 01/03/20 20:00 97.9 82 20 123/64 (83) 97 01/03/20 19:14 89 20 99 Room Air 21 01/03/20 19:06 89 01/03/20 19:04 81 20 93 Room Air 21 01/03/20 19:04 93 Room Air 21 01/03/20 16:00 98.6 70 20 115/74 (88) 96 Intake and Output 2/22/20 2/23/20 19:00 07:00 Intake Total 140 ml Output Total 1800 ml Balance -1660 ml Intake Oral 140 ml Output Urine Total 1800 ml # Voids 3 2 General Appearance: no acute distress HEENT: normocephalic Respiratory/Chest: chest wall non-tender Cardiovascular: normal peripheral pulses Abdomen: normal bowel sounds Laboratory Tests 01/04/20 07:46: White Blood Count 8.5, Red Blood Count 4.34, Hemoglobin 12.1, Hematocrit 36.9L, Mean Corpuscular Volume 85, Mean Corpuscular Hemoglobin 27.9, Mean Corpuscular Hemoglobin Concent 32.8, Red Cell Distribution Width 13.5, Platelet Count 323, Mean Platelet Volume 5.2L, Neutrophils (%) (Auto) 71.8, Lymphocytes (%) (Auto) 14.6L, Monocytes (%) (Auto) 10.1H, Eosinophils (%) (Auto) 1.9, Basophils (%) ( Auto) 1.7, Sodium Level 136, Potassium Level 4.0, Chloride Level 98, Carbon Dioxide Level 30, Anion Gap 8, Blood Urea Nitrogen 23H, Creatinine 0.9, Estimat Glomerular Filtration Rate 59.5, Glucose Level 111H, Uric Acid 8.6H, Calcium Level 9.4, Phosphorus Level 2.7, Magnesium Level 1.8, Total Bilirubin 0.7, Aspartate Amino Transf (AST/SGOT) 22, Alanine Aminotransferase (ALT/SGPT) 12, Alkaline Phosphatase 84, C-Reactive Protein, Quantitative 4.1H, Pro-B-Type Natriuretic Peptide 9993H, Total Protein 6.9, Albumin 3.1L, Globulin 3.8, Albumin/Globulin Ratio 0.8L Current Medications Medications (Trade) Dose Ordered Sig/Meera Route PRN Reason Start Time Stop Time Status Last Admin Dose Admin Acetaminophen (Tylenol) 650 mg Q4H PRN ORAL Mild Pain/Temp > 100.5 12/29/19 22:15 01/28/20 22:14 Apixaban (Eliquis) 2.5 mg Q12H ORAL 12/29/19 23:00 01/28/20 22:59 01/04/20 11:35 Buspirone HCl (Buspar) 15 mg BID ORAL 12/30/19 09:00 01/29/20 08:59 01/04/20 09:08 Digoxin (Lanoxin) 0.125 mg DAILY ORAL 01/03/20 09:00 02/02/20 08:59 01/04/20 09:08 Docusate Sodium (Colace) 100 mg TWICE A DAY ORAL 12/30/19 09:00 01/29/20 08:59 01/04/20 09:08 Furosemide (Lasix) 40 mg DAILY IV 01/03/20 09:00 02/02/20 08:59 01/04/20 09:08 Guaifenesin/ Dextromethorphan (Robitussin DM Syrup) 10 ml Q4H PRN ORAL For Cough 12/29/19 22:15 01/28/20 22:14 Iron Sucrose 100 mg/Sodium Chloride 60 ml @ 240 mls/hr BEDTIME IV 01/01/20 21:00 01/05/20 21:14 01/03/20 20:43 Lisinopril (ZestriL) 10 mg DAILY ORAL 01/04/20 09:00 02/03/20 08:59 01/04/20 09:09 Magnesium Hydroxide (Mom) 30 ml DAILYPRN PRN ORAL Constipation 1ST CHOICE 12/29/19 22:15 01/28/20 22:14 Metoprolol Tartrate (Lopressor) 25 mg Q12HR ORAL 12/31/19 09:00 01/30/20 08:59 01/04/20 09:08 Pantoprazole (Protonix) 40 mg EVERY 12 HOURS ORAL 12/30/19 21:00 01/29/20 20:59 01/04/20 09:08 Polyethylene Glycol (Miralax) 17 gm DAILY PRN ORAL Constipation 12/29/19 22:15 01/28/20 22:14 Temazepam (Restoril) 15 mg HSPRN PRN ORAL Insomnia 12/29/19 22:30 01/05/20 22:29 Vancomycin HCl (Vanco rx to dose) 1 ea DAILY PRN MISC rx protocol 01/03/20 14:45 02/02/20 14:44 Vancomycin HCl 750 mg/Sodium Chloride 275 ml @ 183.333 mls/hr Q24H IVPB 01/04/20 16:00 01/09/20 15:59 Oliver Porras MD Jan 04, 2020 15:46
[2020-01-04 16:00] VITALS: BP 107/68
[2020-01-04] MEDS: Vancomycin 750mg/NS 275ml IVPB SCH ×2 (16:12)
--- NOTE | 2020-01-04 19:11 | NUR ---
HAND-OFF: Report given to GARRY De Leon. Endorsed plan of care.
[2020-01-04 20:00] VITALS: BP 99/56
--- NOTE | 2020-01-04 20:00 | NUR ---
NURSE NOTES: RECEIVED PATIENT LYING IN BED, AWAKE, ALERT/ORIENTED X3, CONFUSED/FORGETFUL, DENIES PAIN. NO SIGNS AND SYMPTOMS OF ACUTE CARDIO RESPIRATORY DISTRESS/SHORTNESS OF BREATH, TRACE EDEMA NOTED, BILATERAL LOWER EXTREMITY ELEVATED ON PILLOW LENGTHWISE WITH HEELS FLOATING. CONTINUE ON RN PATIENT CARE. IV INTACT TO ABDOMEN SOFT/NON DISTENDED, DENIES N/V/D. PURE WICK INTACT, NOTED YELLOW URINE DRAINING VIA SUCTION, TOLERATING WELL. SIDE RAILS UP X3/BED IN LOWEST POSITION FOR SAFETY, ENCOURAGED PATIENT TO UTILIZE CALL LIGHT FOR ASSISTANCE, VERBALIZED UNDERSTANDING. CONTINUE WITH CURRENT PLAN OF CARE. NAD.
[2020-01-04] MEDS: Iron Sucrose 100 MG in NS 55 ML IV SCH (20:49)
[2020-01-05] VITALS: BP 98/67
--- NOTE | 2020-01-05 02:31 | Progress Note ---
DATE: 01/04/2020 CARDIOLOGY PROGRESS NOTE SUBJECTIVE: The patient still has shortness of breath, some cough, and congestion. OBJECTIVE: VITAL SIGNS: Blood pressure 111/63, pulse 75, respirations 20. Monitor atrial fibrillation. LUNGS: Bilateral breath sounds. Rales decreased. CARDIAC: Irregularly irregular rhythm. Normal S1, S2. EXTREMITIES: 1+ dependent edema. LABORATORY DATA: White count 8.5, hemoglobin 12.1. BUN 23, creatinine 0.9. Pro-natriuretic peptide 9900. Potassium 4, BUN 23, creatinine 0.9. IMPRESSION: 1. Acute on chronic systolic and diastolic congestive heart failure. 2. MRSA Staph aureus/bronchitis. 3. Hypertensive heart disease. 4. Atrial fibrillation, rate controlled. PLAN: 1. Continue diuresis. 2. Titrate anti-failure regimen. 3. IV antimicrobials and respiratory hygiene. Jarrett Neal M.D. DR: TAYLOR JOB#: [id number] CC:
[2020-01-05 04:00] VITALS: BP 101/72
--- NOTE | 2020-01-05 07:38 | NUR ---
NURSE NOTES: Received report from GARRY De Leon. Patient in bed resting, no active s/s cardiac, respiratory distress noticed at this time. Patient Aox2-3, A.fib with HR 79, on room air. IV on left FA 22G, asymptomatic, patent, intact. Bed in lowest position, side rails upx2, call light within reach. Will continue to monitor.
--- NOTE | 2020-01-05 07:39 | NUR ---
HAND-OFF: Report given to GARRY BROOKE.
[2020-01-05 08:00] VITALS: BP 111/64
[2020-01-05] MEDS: BusPIRone 5mg Tab ORAL SCH ×2 (09:07→18:18)
[2020-01-05] MEDS: Docusate 100mg cap ORAL SCH ×2 (09:08→18:18)
[2020-01-05] MEDS: Digoxin 0.125mg tab ORAL SCH (09:09)
[2020-01-05] MEDS: Lisinopril 10mg tab ORAL SCH (09:10)
--- NOTE | 2020-01-05 10:01 | Infectious Diseases Prog Note ---
Assessment/Plan Assessment/Plan A 1.MRSA pneumonia, bronchitis 2. Diabetes mellitus 3. Hypertension 4. Atrial fibrillation 5. CVA 6. Dementia P 1. continue IV Vancomycin 2. will follow up cultures Subjective ROS Limited/Unobtainable: Yes Constitutional: Reports: other - feels week Respiratory: Reports: no symptoms Gastrointestinal/Abdominal: Reports: no symptoms Genitourinary: Reports: no symptoms Allergies: Coded Allergies: No Known Allergies (Unverified , 12/29/19) Objective Vital Signs Last 24 Hour Vital Signs Date Time Temp Pulse Resp B/P (MAP) Pulse Ox O2 Delivery O2 Flow Rate FiO2 01/05/20 09:10 111/64 01/05/20 09:10 92 111/64 01/05/20 09:09 92 01/05/20 08:00 97.0 67 18 111/64 (80) 99 01/05/20 04:00 76 01/05/20 04:00 97.8 79 18 101/72 (82) 99 01/05/20 00:00 97.0 86 20 98/67 (77) 97 01/04/20 22:06 Room Air 01/04/20 20:15 81 99/56 01/04/20 20:03 96 Room Air 21 01/04/20 20:00 96.9 81 20 99/56 (70) 96 01/04/20 20:00 92 01/04/20 16:00 80 01/04/20 16:00 97.2 83 20 107/68 (81) 100 01/04/20 12:00 70 01/04/20 12:00 97.4 75 20 111/63 (79) 100 Height (Feet): 5 Height (Inches): 1.00 Weight (Pounds): 178 General Appearance: no acute distress Respiratory/Chest: lungs clear, other - Khyphosis Cardiovascular: normal rate Abdomen: soft, non tender Extremities: other - pedal edema Neurologic/Psychiatric: alert, responsive Current Medications Medications (Trade) Dose Ordered Sig/Meera Route PRN Reason Start Time Stop Time Status Last Admin Dose Admin Acetaminophen (Tylenol) 650 mg Q4H PRN ORAL Mild Pain/Temp > 100.5 12/29/19 22:15 01/28/20 22:14 Apixaban (Eliquis) 2.5 mg Q12H ORAL 12/29/19 23:00 01/28/20 22:59 01/04/20 23:49 Buspirone HCl (Buspar) 15 mg BID ORAL 12/30/19 09:00 01/29/20 08:59 01/05/20 09:07 Digoxin (Lanoxin) 0.125 mg DAILY ORAL 01/03/20 09:00 02/02/20 08:59 01/05/20 09:09 Docusate Sodium (Colace) 100 mg TWICE A DAY ORAL 12/30/19 09:00 01/29/20 08:59 01/05/20 09:08 Furosemide (Lasix) 40 mg DAILY IV 01/03/20 09:00 02/02/20 08:59 01/05/20 09:08 Guaifenesin/ Dextromethorphan (Robitussin DM Syrup) 10 ml Q4H PRN ORAL For Cough 12/29/19 22:15 01/28/20 22:14 Iron Sucrose 100 mg/Sodium Chloride 60 ml @ 240 mls/hr BEDTIME IV 01/01/20 21:00 01/05/20 21:14 01/04/20 20:49 Lisinopril (ZestriL) 10 mg DAILY ORAL 01/04/20 09:00 02/03/20 08:59 01/05/20 09:10 Magnesium Hydroxide (Mom) 30 ml DAILYPRN PRN ORAL Constipation 1ST CHOICE 12/29/19 22:15 01/28/20 22:14 Metoprolol Tartrate (Lopressor) 25 mg Q12HR ORAL 12/31/19 09:00 01/30/20 08:59 01/05/20 09:10 Pantoprazole (Protonix) 40 mg EVERY 12 HOURS ORAL 12/30/19 21:00 01/29/20 20:59 01/05/20 09:08 Polyethylene Glycol (Miralax) 17 gm DAILY PRN ORAL Constipation 12/29/19 22:15 01/28/20 22:14 Temazepam (Restoril) 15 mg HSPRN PRN ORAL Insomnia 12/29/19 22:30 01/05/20 22:29 Vancomycin HCl (Vanco rx to dose) 1 ea DAILY PRN MISC rx protocol 01/03/20 14:45 02/02/20 14:44 Vancomycin HCl 750 mg/Sodium Chloride 275 ml @ 183.333 mls/hr Q24H IVPB 01/04/20 16:00 01/09/20 15:59 01/04/20 16:12 Bhavik Fortune MD Jan 05, 2020 10:01
[2020-01-05] MEDS: Eliquis 2.5mg tablet ORAL SCH ×2 (11:21→22:31)
--- NOTE | 2020-01-05 11:23 | Nephrology Progress Note ---
Assessment/Plan Problem List: (1) Electrolyte imbalance (2) Anemia (3) Obesity (BMI 30.0-34.9) (4) DMII (diabetes mellitus, type 2) Assessment Admitted with respiratory failure and Hypoxia Pneumonia Low Na and High K ? due to aldactone Azotemia / Dehydration CHF , acute on chronic Anemia- Low Irron Obesity Dementia DM Plan Plan: UA Mag supplement IV Iron Aim to correct lytes monitor renal parameters keep BP and BS and HR in check Pulm and cardiac tune up Subjective ROS Limited/Unobtainable: No Constitutional: Reports: malaise Objective Objective Last 24 Hour Vital Signs Date Time Temp Pulse Resp B/P (MAP) Pulse Ox O2 Delivery O2 Flow Rate FiO2 01/05/20 09:10 111/64 01/05/20 09:10 92 111/64 01/05/20 09:09 92 01/05/20 09:00 Room Air 01/05/20 08:00 97.0 67 18 111/64 (80) 99 01/05/20 08:00 62 01/05/20 04:00 76 01/05/20 04:00 97.8 79 18 101/72 (82) 99 01/05/20 00:00 97.0 86 20 98/67 (77) 97 01/04/20 22:06 Room Air 01/04/20 20:15 81 99/56 01/04/20 20:03 96 Room Air 21 01/04/20 20:00 96.9 81 20 99/56 (70) 96 01/04/20 20:00 92 01/04/20 16:00 80 01/04/20 16:00 97.2 83 20 107/68 (81) 100 01/04/20 12:00 70 01/04/20 12:00 97.4 75 20 111/63 (79) 100 Intake and Output 01/04/20 01/05/20 19:00 07:00 Intake Total 118 ml 480 ml Output Total 800 ml Balance -682 ml 480 ml Intake Oral 118 ml 420 ml IV Total 60 ml Output Urine Total 800 ml # Voids 1 3 Height (Feet): 5 Height (Inches): 1.00 Weight (Pounds): 178 General Appearance: no apparent distress Objective no change Nakul Matta MD Jan 05, 2020 11:23
--- NOTE | 2020-01-05 11:43 | Pulmonology Progress Note ---
Assessment/Plan Assessment/Plan IMPRESSION: 1. Acute bronchitis versus pneumonia. 2. CVA. 3. Dementia. 4. Paroxysmal atrial fibrillation. 5. Hypertension. DISCUSSION: 1. Continue present care 2. Agree with broad-spectrum antibiotics. 3. 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 4. Use oxygen prn. 5. DC planning Oliver Porras M.D. Subjective Interval Events: Feeling better Constitutional: Reports: no symptoms HEENT: Repors: no symptoms Respiratory: Reports: no symptoms Cardiovascular: Reports: no symptoms Gastrointestinal/Abdominal: Reports: no symptoms Allergies: Coded Allergies: No Known Allergies (Unverified , 12/29/19) Objective Last 24 Hour Vital Signs Date Time Temp Pulse Resp B/P (MAP) Pulse Ox O2 Delivery O2 Flow Rate FiO2 01/05/20 09:10 111/64 01/05/20 09:10 92 111/64 01/05/20 09:09 92 01/05/20 09:00 Room Air 01/05/20 08:00 97.0 67 18 111/64 (80) 99 01/05/20 08:00 62 01/05/20 04:00 76 01/05/20 04:00 97.8 79 18 101/72 (82) 99 01/05/20 00:00 97.0 86 20 98/67 (77) 97 01/04/20 22:06 Room Air 01/04/20 20:15 81 99/56 01/04/20 20:03 96 Room Air 21 01/04/20 20:00 96.9 81 20 99/56 (70) 96 01/04/20 20:00 92 01/04/20 16:00 80 01/04/20 16:00 97.2 83 20 107/68 (81) 100 01/04/20 12:00 70 01/04/20 12:00 97.4 75 20 111/63 (79) 100 Intake and Output 01/04/20 01/05/20 19:00 07:00 Intake Total 118 ml 480 ml Output Total 800 ml Balance -682 ml 480 ml Intake Oral 118 ml 420 ml IV Total 60 ml Output Urine Total 800 ml # Voids 1 3 General Appearance: no acute distress HEENT: normocephalic Respiratory/Chest: chest wall non-tender, lungs clear Cardiovascular: normal peripheral pulses Abdomen: normal bowel sounds Current Medications Medications (Trade) Dose Ordered Sig/Meera Route PRN Reason Start Time Stop Time Status Last Admin Dose Admin Acetaminophen (Tylenol) 650 mg Q4H PRN ORAL Mild Pain/Temp > 100.5 12/29/19 22:15 01/28/20 22:14 Apixaban (Eliquis) 2.5 mg Q12H ORAL 12/29/19 23:00 01/28/20 22:59 01/05/20 11:21 Buspirone HCl (Buspar) 15 mg BID ORAL 12/30/19 09:00 01/29/20 08:59 01/05/20 09:07 Digoxin (Lanoxin) 0.125 mg DAILY ORAL 01/03/20 09:00 02/02/20 08:59 01/05/20 09:09 Docusate Sodium (Colace) 100 mg TWICE A DAY ORAL 12/30/19 09:00 01/29/20 08:59 01/05/20 09:08 Furosemide (Lasix) 40 mg DAILY IV 01/03/20 09:00 02/02/20 08:59 01/05/20 09:08 Guaifenesin/ Dextromethorphan (Robitussin DM Syrup) 10 ml Q4H PRN ORAL For Cough 12/29/19 22:15 01/28/20 22:14 Iron Sucrose 100 mg/Sodium Chloride 60 ml @ 240 mls/hr BEDTIME IV 01/01/20 21:00 01/05/20 21:14 01/04/20 20:49 Lisinopril (ZestriL) 10 mg DAILY ORAL 01/04/20 09:00 02/03/20 08:59 01/05/20 09:10 Magnesium Hydroxide (Mom) 30 ml DAILYPRN PRN ORAL Constipation 1ST CHOICE 12/29/19 22:15 01/28/20 22:14 Metoprolol Tartrate (Lopressor) 25 mg Q12HR ORAL 12/31/19 09:00 01/30/20 08:59 01/05/20 09:10 Pantoprazole (Protonix) 40 mg EVERY 12 HOURS ORAL 12/30/19 21:00 01/29/20 20:59 01/05/20 09:08 Polyethylene Glycol (Miralax) 17 gm DAILY PRN ORAL Constipation 12/29/19 22:15 01/28/20 22:14 Temazepam (Restoril) 15 mg HSPRN PRN ORAL Insomnia 12/29/19 22:30 01/05/20 22:29 Vancomycin HCl (Vanco rx to dose) 1 ea DAILY PRN MISC rx protocol 01/03/20 14:45 02/02/20 14:44 Vancomycin HCl 750 mg/Sodium Chloride 275 ml @ 183.333 mls/hr Q24H IVPB 01/04/20 16:00 01/09/20 15:59 01/04/20 16:12 Oliver Porras MD Jan 05, 2020 11:43
[2020-01-05 12:00] VITALS: BP 116/64
--- NOTE | 2020-01-05 12:15 | CDS Physician Query ---
Clarification is required for compliance, coding accuracy, and to reflect severity of illness for this patient Dear Dr. Jarrett Neal Date: 01/05/2020 CDS name: Lisa Huntley A diagnosis of "Pneumonia" is documented in the chart of this 84 yo F who came in with respiratory failure as per the notes, and the patient is on IV vancomycin Sputum culture 01/01: Staphylococcus Aureus - MRSA, Candid Albicans Please specify the underlying etiology: [] MRSA [] Gram +Positive Organism(s) [] Anaerobes [] Gram -Negative Organism(s) [] Aspiration [] Pseudomonas [] Mycoplasma [] Not Applicable [] Other organism(s). Please specify: Present on Admission: [] Yes [] No [] Clinically Undetermined Physician signature Date Please also document in your Progress Notes and/or Discharge Summary and indicate if the condition was present on admission. LATHAD
--- NOTE | 2020-01-05 14:09 | NUR ---
RD ASSESSMENT & RECOMMENDATIONS SEE CARE ACTIVITY FOR COMPLETE ASSESSMENT DAILY ESTIMATED NEEDS: Needs based on Cardiac, pulmonary 55.5kg abw 25-30 kcals/kg 6839-9053 total kcals 1-1.5 g protein/kg 56-83 g total protein Fluid per MD, on lasix NUTRITION DIAGNOSIS: Altered nutrition related lab values r/t clinical status as evidenced by elev BNP (9993, trending down), A1C 6.7. CURRENT DIET:KVNG soft easy chew PO DIET RECOMMENDATIONS: Low Na diet/ texture per RESIDENTIAL SALES REP ADDITIONAL RECOMMENDATIONS: 1) Add GLUCERNA TID w/ meals PO INTAKE CURRENTLY 0-50% 2) Obtain a calibrated bed scale wt 3) Rec POC/ accuchecks w/ coverage PRN (A1C 6.7) 4) On lasix, check lytes daily 5) RESIDENTIAL SALES REP eval for appropriate texture and improved food acceptance
--- NOTE | 2020-01-05 14:54 | NUR ---
*-* DISCHARGE PLANNING *-* PATIENT HAS BEEN REFERRED TO: [facility] P: [phone] F: [phone] EMAIL: [email or web address] Addendum: 01/05/20 at 1507 by JOYCE NAVARRETE SPOKE WITH MATT AT [facility] SHE DOES NOT HAVE AN ISO BED AT THE TIME MAYBE 01/06/20
--- NOTE | 2020-01-05 15:32 | NUR ---
*-* DISCHARGE PLANNING *-* PATIENT HAS BEEN REFERRED TO: [facility] P: [phone] F: [phone]
[2020-01-05 16:00] VITALS: BP 104/53
--- NOTE | 2020-01-05 16:03 | NUR ---
CASE MANAGEMENT: REVIEW 01/05/2020 SI:PNA. A/C CHF 97.7 88 18 104/53 99% ON 2L/NC IS:IV VANCO Q24HR VENOFER IV QHS X5 BAGS ASA PO QD ELIQUIS PO Q12H LOPRESSOR PO Q12H DIGOXIN PO QD \: 23 TELE UNIT PLAN OF CARE: PLACEMENT
[2020-01-05] MEDS: Vancomycin 750mg/NS 275ml IVPB SCH ×2 (16:42)
--- NOTE | 2020-01-05 19:00 | NUR ---
NURSE NOTES: Received report from Neno Hunt RN
--- NOTE | 2020-01-05 19:07 | NUR ---
HAND-OFF: Report given to GARRY Chowdhury. Endorsed plan of care.
--- NOTE | 2020-01-05 19:20 | NUR ---
NURSE NOTES: Initial rounding done. pt resting in bed, resp even. no apparent CV c/o noted. IVF infusing well to LFA intact/patent. Call light w/in reach.
[2020-01-05 20:00] VITALS: BP 110/58
[2020-01-05] MEDS: Iron Sucrose 100 MG in NS 55 ML IV SCH (20:30)
[2020-01-06] VITALS: BP 94/50
--- NOTE | 2020-01-06 | NUR ---
NURSE NOTES: Received patient awake in bed, confused, yelling in danish demanding to know when she got to the hospital, reoriented patient. IV access intact, IV medications and pump transferred with patient. Belongings accounted for and list signed. Call light and belongings within reach. Bed low and locked, patient wearing non slip socks.
--- NOTE | 2020-01-06 00:15 | NUR ---
NURSE NOTES: Transfer report at bedside given to GARRY Sepulveda. Belongings w/ pt.
--- NOTE | 2020-01-06 01:30 | Progress Note ---
DATE: 01/05/2020 CARDIOLOGY PROGRESS NOTE SUBJECTIVE: The patient still has some cough and congestion. She is on intravenous vancomycin for MRSA of sputum. PHYSICAL EXAMINATION: VITAL SIGNS: Blood pressure 110/58, heart rate 62, respiratory 18 to 20, afebrile, room air oxygen saturation 94% to 99%. LUNGS: Coarse breath sounds. HEART: Irregularly irregular rhythm. Normal S1 and S2. ABDOMEN: Soft. EXTREMITIES: Trace edema. IMPRESSION: 1. Acute on chronic systolic and diastolic congestive heart failure. 2. Atrial fibrillation, now rate controlled. 3. MRSA tracheobronchitis and possible bronchial pneumonia. 4. Mild protein-calorie malnutrition. PLAN: 1. Discussed with the patient's son. 2. Will need [facility] care for short-term prior to returning to assisted living. 3. Continue IV vancomycin, respiratory hygiene. 4. Continue digoxin and metoprolol for rate control. 5. Continue Apixaban for cardioembolic prophylaxis. 6. Titrate angiotensin-converting enzyme inhibitor for heart failure as tolerated by blood pressure parameters. Jarrett Neal M.D. DR: Nataliya JOB#: [id number] CC:
[2020-01-06 04:00] VITALS: BP 131/54
[2020-01-06] MEDS ORDERED: Guaifenesin/DM 10ml syrup ORAL PRN (07:00)
[2020-01-06] MEDS ORDERED: Milk of Magnesia 30ml Ud ORAL PRN (07:00)
--- NOTE | 2020-01-06 07:25 | NUR ---
NURSE NOTES: Received patient in bed, awake, verbally responsive. Not in respiratory/cardiac distress. Denies pain or discomfort @ this time. Bed is in lowest position and locked. Call light within reach. Reminded patient to use call light when needed. Bed alarm is on. will continue plan of care.
[2020-01-06 08:00] VITALS: BP 128/56
[2020-01-06] MEDS ORDERED: Lisinopril 10mg tab ORAL SCH (09:00)
[2020-01-06] MEDS ORDERED: Digoxin 0.125mg tab ORAL SCH (09:00)
[2020-01-06] MEDS ORDERED: Miralax 17gm pkt ORAL PRN (09:00)
[2020-01-06] MEDS ORDERED: BusPIRone 5mg Tab ORAL SCH (09:00)
[2020-01-06] MEDS ORDERED: Docusate 100mg cap ORAL SCH (09:00)
--- NOTE | 2020-01-06 10:58 | Infectious Diseases Prog Note ---
Assessment/Plan Assessment/Plan antibiotics : vancomycin iv A 1. MRSA pneumonia improving 2. diabetes mellitus 3. hypertension 4. atrial fibrillation 5. CVA 6. dementia P 1. continue iv vancomycin in hospital 2. po bactrim on discharge 6 more days 3. will follow up cultures Subjective ROS Limited/Unobtainable: Yes Allergies: Coded Allergies: No Known Allergies (Unverified , 12/29/19) Objective Vital Signs Last 24 Hour Vital Signs Date Time Temp Pulse Resp B/P (MAP) Pulse Ox O2 Delivery O2 Flow Rate FiO2 01/06/20 10:04 78 128/56 01/06/20 10:03 78 01/06/20 10:02 128/56 01/06/20 09:00 Room Air 01/06/20 08:00 98.5 77 17 128/56 (80) 93 01/06/20 04:00 98.2 74 16 131/54 (79) 94 01/06/20 00:00 98.0 51 16 94/50 (65) 94 01/06/20 00:00 66 01/06/20 00:00 66 01/05/20 23:42 75 01/05/20 21:00 Room Air 01/05/20 20:29 75 115/65 01/05/20 20:00 97.9 62 20 110/58 (75) 99 01/05/20 19:00 95 Room Air 21 01/05/20 16:00 97.7 88 18 104/53 (70) 99 01/05/20 16:00 70 01/05/20 12:00 70 01/05/20 12:00 97.7 78 18 116/64 (81) 98 Height (Feet): 5 Height (Inches): 1.00 Weight (Pounds): 178 Respiratory/Chest: lungs clear Cardiovascular: normal rate, regular rhythm, no gallop/murmur Abdomen: soft, non tender Extremities: other - + edema Laboratory Tests Test 01/06/20 08:35 Digoxin Level 1.5 NG/ML (0.9-2.0) Current Medications Medications (Trade) Dose Ordered Sig/Meera Route PRN Reason Start Time Stop Time Status Last Admin Dose Admin Acetaminophen (Tylenol) 650 mg Q4H PRN ORAL Mild Pain/Temp > 100.5 01/06/20 10:15 01/28/20 22:14 Apixaban (Eliquis) 2.5 mg Q12H ORAL 01/06/20 11:00 01/28/20 22:59 Buspirone HCl (Buspar) 15 mg BID ORAL 01/06/20 09:00 01/29/20 08:59 01/06/20 10:02 Digoxin (Lanoxin) 0.125 mg DAILY ORAL 01/06/20 09:00 02/02/20 08:59 01/06/20 10:03 Docusate Sodium (Colace) 100 mg TWICE A DAY ORAL 01/06/20 09:00 01/29/20 08:59 01/06/20 10:02 Furosemide (Lasix) 40 mg DAILY IV 01/06/20 09:00 02/02/20 08:59 01/06/20 10:04 Guaifenesin/ Dextromethorphan (Robitussin DM Syrup) 10 ml Q4H PRN ORAL For Cough 01/06/20 07:00 01/28/20 06:59 Lisinopril (ZestriL) 10 mg DAILY ORAL 01/06/20 09:00 02/03/20 08:59 01/06/20 10:02 Magnesium Hydroxide (Mom) 30 ml DAILYPRN PRN ORAL Constipation 1ST CHOICE 01/06/20 07:00 01/28/20 06:59 Metoprolol Tartrate (Lopressor) 25 mg Q12HR ORAL 01/06/20 09:00 01/30/20 08:59 01/06/20 10:04 Pantoprazole (Protonix) 40 mg EVERY 12 HOURS ORAL 01/06/20 09:00 01/29/20 20:59 01/06/20 10:02 Polyethylene Glycol (Miralax) 17 gm DAILY PRN ORAL Constipation 01/06/20 09:00 01/28/20 22:14 Vancomycin HCl (Vanco rx to dose) 1 ea DAILY PRN MISC rx protocol 01/06/20 09:00 02/02/20 14:44 Vancomycin HCl 750 mg/Sodium Chloride 275 ml @ 183.333 mls/hr Q24H IVPB 01/06/20 16:00 01/09/20 15:59 Nieves Burgess MD Jan 06, 2020 10:58
[2020-01-06] MEDS ORDERED: Eliquis 2.5mg tablet ORAL SCH (11:00)
[2020-01-06 12:00] VITALS: BP 130/60
--- NOTE | 2020-01-06 14:03 | Pulmonology Progress Note ---
Assessment/Plan Assessment/Plan IMPRESSION: 1. Acute bronchitis versus pneumonia. chest x-ray is clear 2. CVA. 3. Dementia. 4. Paroxysmal atrial fibrillation. 5. Hypertension. DISCUSSION: 1. Continue present care 2. Agree with broad-spectrum antibiotics. 3. 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 4. Use oxygen prn. 5. DC planning Oliver Porras M.D. Subjective Interval Events: none new reported Constitutional: Reports: no symptoms HEENT: Repors: no symptoms Respiratory: Reports: no symptoms Cardiovascular: Reports: no symptoms Gastrointestinal/Abdominal: Reports: no symptoms Allergies: Coded Allergies: No Known Allergies (Unverified , 12/29/19) Objective Last 24 Hour Vital Signs Date Time Temp Pulse Resp B/P (MAP) Pulse Ox O2 Delivery O2 Flow Rate FiO2 01/06/20 12:00 98.5 81 18 130/60 (83) 93 01/06/20 10:04 78 128/56 01/06/20 10:03 78 01/06/20 10:02 128/56 01/06/20 09:00 Room Air 01/06/20 08:00 98.5 77 17 128/56 (80) 93 01/06/20 04:00 98.2 74 16 131/54 (79) 94 01/06/20 00:00 98.0 51 16 94/50 (65) 94 01/06/20 00:00 66 01/06/20 00:00 66 01/05/20 23:42 75 01/05/20 21:00 Room Air 01/05/20 20:29 75 115/65 01/05/20 20:00 97.9 62 20 110/58 (75) 99 01/05/20 19:00 95 Room Air 21 01/05/20 16:00 97.7 88 18 104/53 (70) 99 01/05/20 16:00 70 Intake and Output 01/05/20 01/06/20 19:00 07:00 Intake Total 480 ml Output Total 300 ml Balance 480 ml -300 ml Intake Oral 480 ml Output Urine Total 300 ml # Voids 3 1 General Appearance: no acute distress HEENT: normocephalic Respiratory/Chest: chest wall non-tender Cardiovascular: normal peripheral pulses Abdomen: normal bowel sounds Laboratory Tests 01/06/20 08:35: Digoxin Level 1.5 Current Medications Medications (Trade) Dose Ordered Sig/Meera Route PRN Reason Start Time Stop Time Status Last Admin Dose Admin Acetaminophen (Tylenol) 650 mg Q4H PRN ORAL Mild Pain/Temp > 100.5 01/06/20 10:15 01/28/20 22:14 Apixaban (Eliquis) 2.5 mg Q12H ORAL 01/06/20 11:00 01/28/20 22:59 01/06/20 12:34 Buspirone HCl (Buspar) 15 mg BID ORAL 01/06/20 09:00 01/29/20 08:59 01/06/20 10:02 Digoxin (Lanoxin) 0.125 mg DAILY ORAL 01/06/20 09:00 02/02/20 08:59 01/06/20 10:03 Docusate Sodium (Colace) 100 mg TWICE A DAY ORAL 01/06/20 09:00 01/29/20 08:59 01/06/20 10:02 Furosemide (Lasix) 40 mg DAILY ORAL 01/07/20 09:00 02/06/20 08:59 Guaifenesin/ Dextromethorphan (Robitussin DM Syrup) 10 ml Q4H PRN ORAL For Cough 01/06/20 07:00 01/28/20 06:59 Lisinopril (ZestriL) 10 mg DAILY ORAL 01/06/20 09:00 02/03/20 08:59 01/06/20 10:02 Magnesium Hydroxide (Mom) 30 ml DAILYPRN PRN ORAL Constipation 1ST CHOICE 01/06/20 07:00 01/28/20 06:59 Metoprolol Tartrate (Lopressor) 25 mg Q12HR ORAL 01/06/20 09:00 01/30/20 08:59 01/06/20 10:04 Pantoprazole (Protonix) 40 mg EVERY 12 HOURS ORAL 01/06/20 09:00 01/29/20 20:59 01/06/20 10:02 Polyethylene Glycol (Miralax) 17 gm DAILY PRN ORAL Constipation 01/06/20 09:00 01/28/20 22:14 Vancomycin HCl (Vanco rx to dose) 1 ea DAILY PRN MISC rx protocol 01/06/20 09:00 02/02/20 14:44 Vancomycin HCl 750 mg/Sodium Chloride 275 ml @ 183.333 mls/hr Q24H IVPB 01/06/20 16:00 01/09/20 15:59 Oliver Porras MD Jan 06, 2020 14:03
--- NOTE | 2020-01-06 14:13 | Nephrology Progress Note ---
Assessment/Plan Problem List: (1) Electrolyte imbalance (2) Anemia (3) Obesity (BMI 30.0-34.9) (4) DMII (diabetes mellitus, type 2) Assessment Admitted with respiratory failure and Hypoxia Pneumonia Low Na and High K ? due to aldactone Azotemia / Dehydration CHF , acute on chronic Anemia- Low Irron Obesity Dementia DM Plan Plan: UA Mag supplement IV Iron Aim to correct lytes monitor renal parameters keep BP and BS and HR in check Pulm and cardiac tune up Subjective ROS Limited/Unobtainable: No Constitutional: Reports: malaise Objective Objective Last 24 Hour Vital Signs Date Time Temp Pulse Resp B/P (MAP) Pulse Ox O2 Delivery O2 Flow Rate FiO2 01/06/20 12:00 98.5 81 18 130/60 (83) 93 01/06/20 10:04 78 128/56 01/06/20 10:03 78 01/06/20 10:02 128/56 01/06/20 09:00 Room Air 01/06/20 08:00 98.5 77 17 128/56 (80) 93 01/06/20 04:00 98.2 74 16 131/54 (79) 94 01/06/20 00:00 98.0 51 16 94/50 (65) 94 01/06/20 00:00 66 01/06/20 00:00 66 01/05/20 23:42 75 01/05/20 21:00 Room Air 01/05/20 20:29 75 115/65 01/05/20 20:00 97.9 62 20 110/58 (75) 99 01/05/20 19:00 95 Room Air 21 01/05/20 16:00 97.7 88 18 104/53 (70) 99 01/05/20 16:00 70 Intake and Output 01/05/20 01/06/20 19:00 07:00 Intake Total 480 ml Output Total 300 ml Balance 480 ml -300 ml Intake Oral 480 ml Output Urine Total 300 ml # Voids 3 1 Laboratory Tests 01/06/20 08:35: Digoxin Level 1.5 Height (Feet): 5 Height (Inches): 1.00 Weight (Pounds): 178 General Appearance: no apparent distress Objective no change Nakul Matta MD Jan 06, 2020 14:13
--- NOTE | 2020-01-06 14:40 | NUR ---
NURSE NOTES: Rn spoke to Dr. Burgess ID to d/c vancomycin upon discharge to SNf and start Bactrim DS 1 tab po BID x 6 days.
[2020-01-06] MEDS ORDERED: ACETAMINOPHEN325 M1 ORAL (14:50)
[2020-01-06] MEDS ORDERED: ELIQUIS2.5 MG PO (14:51)
[2020-01-06] MEDS ORDERED: FUROSEMIDE40 MG ORAL (14:52)
[2020-01-06] MEDS ORDERED: DOCUSATE SODIU100 MG ORAL (14:52)
[2020-01-06] MEDS ORDERED: DIGOXIN125 MCG ORAL (14:52)
[2020-01-06] MEDS ORDERED: GUAIFENESIN DM118 M1 ORAL (14:53)
[2020-01-06] MEDS ORDERED: MOM30 ML ORAL (14:54)
[2020-01-06] MEDS ORDERED: LISINOPRIL10 MG ORAL (14:54)
[2020-01-06] MEDS ORDERED: METOPROLOL TART25 MG ORAL (14:55)
[2020-01-06] MEDS ORDERED: PANTOPRAZOLE SO40 MG ORAL (14:55)
[2020-01-06] MEDS ORDERED: BACTRIM DS TAB1 EAC1 ORAL (14:57)
[2020-01-06 16:00] VITALS: BP 126/64
[2020-01-06] MEDS ORDERED: Vancomycin 750 MG in NS 275 ML IVPB SCH (16:00)
--- NOTE | 2020-01-06 16:00 | NUR ---
NURSE NOTES: Discharged patient to [facility] in [facility] condition. Prior to discharge, patient's V/S stable. Not in respiratory/cardiac distress. Denied any pain or discomfort. patient's son Roger was informed about discharge and given name of the facility. Interfacility report given to nurse Don and endorsed plan of care including po antibiotics.IV and ID were removed. all belongings accounted for including earrings,necklace, ring and upper denture. Patient was wearing upper denture and endorsed to ambulance personnel to keep watch on it during transfer and correction Rn is aware. No s/s of infection on IV removal site, proper skin care done and no pressure sore or skin break noted.
[2020-01-07] MEDS ORDERED: Furosemide 40mg tab ORAL SCH (09:00)
--- NOTE | 2020-01-08 07:50 | Discharge Summary ---
Discharge Summary Discharge Summary _ DATE OF ADMISSION: 12/29/2019 DATE OF DISCHARGE: 01/06/2020 DISCHARGED BY: REASON FOR ADMISSION: 84 years old female with past medical history of cerebrovascular disease, dementia, paroxysmal atrial fibrillation, hypertension, osteoarthritis, diabetes mellitus type 2, vitamin D deficiency, status post left knee surgery, presented from assisted living with several days of cough , congestion and shortness of breath. Patient noted to be hypoxic and tachypneic with episode of hypotension. Patient with DNR/DNI status. In emergency department patient received IV fluids. Laboratory work-up revealed no leukocytosis, mild anemia. ABG was stable. Chemistry revealed hyperkalemia with potassium 5.5. Sodium 128. BUN 27, creatinine 1.3. EKG revealed atrial fibrillation with controlled ventricular response . Chest x-ray demonstrated. cardiomegaly. Mild interstitial prominence. Lactate 1.6 Troponin negative , proBNP 1341. Patient received Lasix ,started on empiric antibiotics and admitted for further management CONSULTANTS: pulmonary Dr. Porras ID specialist Dr. Burgess offset lithographic press setter Dr. Matta [facility]: Patient pancultured and started on empiric antibiotic. Supplemental oxygen provided and titrated to keep oximetry above 92%. Bronchodilator treatment via HHN provided. Antitussive provided as needed. Aldactone was held due to hyperkalemia. Patient started on IV hydration with saline solution. Volumes and cardiorenal parameters were closely monitored. Echocardiogram demonstrated global left ventricular hypokinesia and apical akinesia. Left ventricular ejection fraction estimated to be 30%. Evidence of aortic stenosis and moderate mitral regurgitation. Right ventricular systolic pressure of 55 consistent with moderate pulmonary hypertension. Heart rate was controlled with beta-aaron and digoxin. Patient was continued on antiembolic prophylaxis with Eliquis. Aldactone avoided given prior hyperkalemia. Diuresis provided with close monitoring of volumes and cardiorenal parameters. Blood pressure was managed with beta-aaron , KHADRA inhibitor and Lasix. Influenza swab were negative. Mycoplasma and Legionella titers negative. Sputum culture revealed MRSA and Galina. Antibiotic regimen optimized as per ID specialist recommendation. Patient was on IV vancomycin while in the hospital and changed to oral Bactrim upon discharge to complete the course. Hemoglobin and hematocrit were closely monitored with goal to keep hemoglobin above 7. Patient was on iron replacement. Stool for occult blood was negative. Parameters electrolytes are closely monitored. All electrolytes corrected Prior to discharge sodium 136, potassium 4.0. BUN 23, creatinine 0.9. GI prophylaxis provided. Patient clinically stabilized and was ready for discharge back to [facility] for continuation of care . Patient will need to complete antibiotic as per ID specialist recommendations. FINAL DIAGNOSES: MRSA pneumonia Acute on chronic systolic and diastolic congestive heart failure Atrial fibrillation with rapid ventricular response Hypoxia Hyponatremia-resolved Hyperkalemia -reolved Dehydration Cerebrovascular disease with dementia Hypertensive heart disease Diabetes mellitus DISCHARGE MEDICATIONS: See Medication Reconciliation list. DISCHARGE INSTRUCTIONS: Patient was discharged to the [facility] facility. Follow up with medical doctor at the facility. I have been assigned to dictate discharge summary for this account. I was not involved in the patient's management. Desi Don NP Jan 08, 2020 07:50
== END 2020-01-06 16:20 | DRG 177 ==
LOC: EDBD 14:47 → EMR 16:02 → 2E 16:09 → EDBEDREQ 17:43 → EDBEDREQSVC 17:43 → EDBEDREQ 18:09 → 2E 01-01 13:59 → 4E 01-06 00:47
DX: J15.212 Pneumonia due to Methicillin resistant Staphylococcus aureus (principal); I50.43 Acute on chronic combined systolic (congestive) and diastolic (congestive) heart failure; E87.1 Hypo-osmolality and hyponatremia; E44.1 Mild protein-calorie malnutrition; I11.0 Hypertensive heart disease with heart failure; F01.50 Vascular dementia, unspecified severity, without behavioral disturbance, psychotic disturbance, mood disturbance, and anxiety; E87.5 Hyperkalemia; Z79.01 Long term (current) use of anticoagulants; E86.0 Dehydration; Z66 Do not resuscitate; I48.0 Paroxysmal atrial fibrillation; E11.9 Type 2 diabetes mellitus without complications; R09.02 Hypoxemia; R79.1 Abnormal coagulation profile; Z86.73 Personal history of transient ischemic attack (TIA), and cerebral infarction without residual deficits; D50.9 Iron deficiency anemia, unspecified; E66.9 Obesity, unspecified
CPT/HCPCS: 36415; 36600; 71045; 80053; 80061; 80162; 80202; 81001; 82270; 82607; 82728; 82746; 82803; 83036; 83540; 83550; 83605; 83735; 83880; 83930; 83935; 84100; 84300; 84443; 84484; 84550; 85025; 86140; 86710; 86713; 86738; 87070; 87081; 87181; 87205; 93005; 93306; 94640; 96365; 96368; 96375; 99285; J7620; J8499